=== PATIENT | female | born 1995 | race Caucasian/White ===

== ENCOUNTER 2024-10-21 02:21 | Inpatient (IN) ==
--- NOTE | 2024-10-21 02:35 | Emergency Department Note ---
Impression & Plan Sepsis, Pyelonephritis ED Provider Note CHIEF COMPLAINT: Vomiting, fever HISTORY OF PRESENTING ILLNESS: The patient is a 29-year-old female who arrives to the emergency department for evaluation of urinary symptoms x 1 week. She reports today she began having vomiting, fevers, intermittent back pain, and hematuria. She reports she took Tylenol prior to arrival at 8:00 tonight. She reports history of previous UTIs, however has not had one in a few years. REVIEW OF SYSTEMS: See HPI for pertinent positives and pertinent negatives. ALLERGIES: See below MEDICATIONS: See below PAST MEDICAL HISTORY: See above PHYSICAL EXAM: VITALS: Vitals are noted on the nurse's note and reviewed by myself. Vital signs stable. GENERAL: 29-year-old female, in no acute distress, nondiaphoretic, well- developed well-nourished. SKIN: The skin was without rashes, erythema, edema, or bruising. HEAD: Normocephalic atraumatic. HEART: Tachycardia with regular rhythm without murmurs gallops or rubs. LUNGS: Clear to auscultation bilaterally without wheezes, rales or rhonchi. No retractions or accessory muscle use. ABDOMEN: Positive bowel sounds x 4. Soft, TTP suprapubic, bilateral CVA TTP. NEURO: Patient was alert and oriented to person place and time. No focal neurological deficits. DIFFERENTIAL DIAGNOSIS: Appendicitis, ovarian cyst, ovarian torsion, ectopic , TOA, PID, infections, diverticulitis, UTI, obstruction, mesenteric ischemia, aortic pathology, inflammatory bowel disease, renal colic, PUD, pancreatitis, biliary pathology, hernia, volvulus, constipation, as well as other pathologies. ED COURSE AND MEDICAL DECISION MAKING: HISTORY FROM INDEPENDENT HISTORIAN: at bedside a secondary historian. MEDICATIONS GIVEN: 2 L NSS bolus, 1 g IV acetaminophen, 2 g IV Rocephin, 15 mg IV Toradol, 4 mg IV Zofran MONITOR: Continuous equipment monitor phototypesetting: Order was placed for continuous equipment monitor phototypesetting. Patient was placed on the equipment monitor phototypesetting and continuous pulse ox. Patient was noted to be in normal sinus rhythm at an initial rate of 139 bpm per my interpretation. INTERPRETATION OF LABS: I interpreted the labs with full lab results as below in the lab section of this note. Pertinent lab results discussed in the MDM section below. INTERPRETATION OF IMAGING: Imaging studies were interpreted by myself and read by radiology as per the imaging section of this note. CHRONIC MEDICAL/SOCIAL CONDITIONS AFFECTING CARE: Previous IV drug abuse MDM SUMMARY: The patient is a pleasant, 29-year-old female who arrives to the emergency department for evaluation of the above-stated complaint. Sepsis orders were obtained due to tachycardia, and fever with urine as likely source of infection. Lab work shows leukocytosis 12.2, sodium 133, potassium 3.4, procalcitonin 2.4. Urinalysis 2+ leukocyte esterase, 2+ bacteria, greater than 50 WBCs. Fluid resuscitation was provided with 2 L of normal saline, the patient was provided IV Tylenol for fever, 2 g of IV Rocephin for broad-spectrum coverage, IV Toradol for pain, and IV Zofran for nausea. CT imaging of the abdomen and pelvis with IV contrast was obtained which shows perinephric fat stranding, with likely left-sided pyelonephritis. [facility]. Booker, agreed to accept the patient under his care. Please refer to his documentation for further patient workup and treatment. DIAGNOSIS: Pyelonephritis, sepsis The chart was completed utilizing [email or web address][employer] Speech voice recognition software. Grammatical errors, random word insertions, pronoun errors, and incomplete sentences are an occasional consequence of this system due to software limitations, ambient noise, and hardware issues. Any formal questions or concerns about the content, text, or information contained within the body of this dictation should be directly addressed to the provider for clarification. Past Med/Surg History Problem List (Updated 10/23/24 @ 20:33 by OUSMANE Funes) Pyelonephritis (Acute) Sepsis (Acute) Acne (Chronic 08/21/12) Social History Smoking Status: Current every day smoker Tobacco Type: E-cigarettes / Vaping Hx Alcohol Use: No Hx Substance Use: No Preferred Language: Yi Communication Ability: Effective Laboratory Director Required: No Beliefs That Will Affect Care: None Current Living Situation: Alone Feels Safe at Home: Yes Safety Concerns: Feels Safe At This Time Allergies Allergies Allergy/AdvReac Type Severity Reaction Status Date / Time No Known Allergies Allergy Verified 10/21/24 02:38 Home Meds Home Medications Medication Instructions Recorded Confirmed bupropion HCl 150 mg 24 hr tablet, 150 mg PO QAM 12/14/23 10/21/24 extended release amitriptyline 25 mg tablet 25 mg PO HS 10/21/24 10/21/24 methadone 10 mg/5 mL oral solution 91 mg PO DAILY 10/21/24 10/21/24 multivitamin 1 tab PO DAILY 10/21/24 10/21/24 Previous Rx's Medication Instructions Recorded amoxicillin 500 mg-potassium 1 tab PO BID 7 days #14 tabs 10/22/24 clavulanate 125 mg tablet (Augmentin) meloxicam 7.5 mg tablet 7.5 mg PO DAILY PRN headache #14 10/22/24 tabs ondansetron 4 mg disintegrating 4 mg PO DAILY PRN nausea and 10/22/24 tablet vomiting #14 tabs Results & Data (ED) Vital Signs Vital Signs - 24 hr 10/21/24 02:26 10/21/24 03:06 10/21/24 03:12 Temperature 37.7 C H Temperature Source Temporal Artery Scan Pulse Rate 139 H 130 H 122 H Pulse Rate from SpO2 Sensor Respiratory Rate 20 19 26 H Respiratory Effort / Characteristics Non-Labored Respiratory Depth Normal Blood Pressure 120/71 Blood Pressure Mean 87 Pulse Oximetry 98 Oxygen Delivery Method Room Air Sepsis Recent Fever Within 48 Hours Yes Sepsis New/Unexplained Change in Mental Status No Sepsis Action Taken by Nursing No Action Required 10/21/24 03:30 10/21/24 03:30 10/21/24 03:37 Temperature Temperature Source Pulse Rate 112 H Pulse Rate from SpO2 Sensor 114 H Respiratory Rate Respiratory Effort / Characteristics Respiratory Depth Blood Pressure Blood Pressure Mean Pulse Oximetry 92 92 Oxygen Delivery Method Room Air Room Air Sepsis Recent Fever Within 48 Hours Sepsis New/Unexplained Change in Mental Status Sepsis Action Taken by Halfway Medications Current Medication List: was personally reviewed by me Laboratory Data Attestation: I reviewed the patient's lab results. 10/22/24 06:28 10/22/24 06:28 Lab Results 10/21/24 10/21/24 Range/Units 03:13 03:15 WBC 12.20 H (4.8-10.8) K/ul RBC 4.55 (4.20-5.40) M/uL Hgb 12.4 (12.0-16.0) g/dl Hct 36.9 L (37.0-47.0) % MCV 81.1 (80.0-100.0) fL MCH 27.3 (25.0-34.0) pg MCHC 33.6 (32.0-36.0) g/dL RDW Std Deviation 37.2 (36.4-46.3) fL RDW Coeff of Alannah 12.7 (11.5-14.5) % Plt Count 195 (130-400) K/uL MPV 10.1 (9.4-12.4) fL Immature Gran % (Auto) 0.3 % Neut % (Auto) 92.2 % Lymph % (Auto) 4.1 % [place] % (Auto) 3.0 % Eos % (Auto) 0.1 % Baso % (Auto) 0.3 % Neut # (Auto) 11.25 H (1.40-6.50) K/uL Lymph # (Auto) 0.50 L (1.20-3.40) K/uL [place] # (Auto) 0.36 (0.11-0.59) K/uL Eos # (Auto) 0.01 (0.00-0.50) K/uL Baso # (Auto) 0.04 (0.00-0.20) K/uL Immature Gran # (Auto) 0.04 (0.01-0.20) K/uL Polychromasia 1+ Sodium 133 L (136-145) mmol/L Potassium 3.4 L (3.5-5.1) mmol/L Chloride 102 (98-107) mmol/L Carbon Dioxide 26 (21-32) mmol/L Anion Gap 5 (3-11) BUN 21 (6-23) mg/dl Creatinine 0.99 (0.6-1.2) mg/dl Est Cr Clr Drug Dosing 83.3 ml/min eGFR 78.18 BUN/Creatinine Ratio 21.2 H (10-20) Glucose 114 H (70-99(Fasting)) mg/dl Estimat Average Glucose 117 mg/dl Hemoglobin A1c 5.7 H (4.5-5.6) % Lactate 0.8 (0.4-2.0) mmol/L Calcium 9.2 (8.6-10.3) mg/dl Magnesium 1.5 L (1.7-2.4) mg/dl Total Bilirubin 0.6 (0.2-1.0) mg/dl AST 21 (13-39) U/L ALT 20 (7-52) U/L Alkaline Phosphatase 65 (34-104) U/L Total Protein 7.3 (6.0-8.3) gm/dl Albumin 4.3 (3.4-5.0) gm/dl Globulin 3.0 (2.5-4.0) gm/dl Albumin/Globulin Ratio 1.4 (0.9-2) Lipase 12 (11-82) U/L Procalcitonin 2.40 H (0-0.5) ng/ml Urine Color Yellow Urine Appearance Clear (Clear) Urine pH 7.5 (4.5-7.5) Ur Specific [place] 1.013 (1.000-1.030) Urine Protein Trace H (Negative) Urine Glucose (UA) Negative (Negative) Urine Ketones 1+ H (Negative) Urine Blood Negative (Negative) Urine Nitrite Negative (Negative) Urine Bilirubin Negative (Negative) Urine Urobilinogen Negative (Negative) Ur Leukocyte Esterase 2+ H (Negative) Urine WBC (Auto) >50 H (0-5) /hpf Urine RBC (Auto) 0-2 (0-2) /hpf U Hyaline Cast (Auto) 0-2 (0-2) /lpf U Epithel Cells (Auto) 0-2 (0-2) /hpf Urine Bacteria (Auto) 2+ H (None Seen) Urine Test Negative (Negative) Administered Medications Discontinued Medications Acetaminophen (Acetaminophen 500 Mg Tab) 500 mg PO Q6H PRN PRN Reason: fever/pain Stop: 11/20/24 05:42 Last Admin: 10/21/24 15:16 Dose: 500 mg Documented By: [facility] Acetaminophen (Acetaminophen 500 Mg Tab) 1,000 mg PO Q8H PRN PRN Reason: fever/pain Stop: 11/20/24 05:42 Last Admin: 10/22/24 03:20 Dose: 1,000 mg Documented By: YAZMIN Amitriptyline HCl (Amitriptyline Hcl 25 Mg Tab) 25 mg PO HS CARLITO Stop: 11/20/24 20:59 Last Admin: 10/21/24 20:18 Dose: 25 mg Documented By: ADRIANNE Bupropion HCl (Bupropion Xl 150 Mg Tabcr) 150 mg PO QAM CARLITO Stop: 11/20/24 08:59 Last Admin: 10/22/24 08:43 Dose: 150 mg Documented By: Admin: 10/21/24 09:12 Dose: 150 mg Documented By: DUSTIN Sodium Chloride (Nss) 1,000 mls @ 999 mls/hr IV .Q1H1M ONE Stop: 10/21/24 03:33 Last Infusion: 10/21/24 04:41 Dose: Infused Documented By: Admin: 10/21/24 03:13 Dose: 999 mls/hr Documented By: LIN Acetaminophen (Ofirmev) 1,000 mg in 100 mls @ 400 mls/hr IV NOW STA Stop: 10/21/24 02:47 Last Infusion: 10/21/24 04:23 Dose: Infused Documented By: Admin: 10/21/24 03:15 Dose: 400 mls/hr Documented By: LIN Ceftriaxone Sodium (Rocephin) 2,000 mg in 50 mls @ 100 mls/hr IV NOW STA Stop: 10/21/24 03:36 Last Infusion: 10/21/24 04:23 Dose: Infused Documented By: Admin: 10/21/24 03:33 Dose: 100 mls/hr Documented By: LIN Potassium Chloride/Sodium Chloride (Normal Saline W/20 Meq Kcl) 20 meq in 1,000 mls @ 100 mls/hr IV .Q10H ONE Stop: 10/21/24 15:41 Last Infusion: 10/21/24 16:23 Dose: Infused Documented By: [facility] [place]: 10/21/24 06:19 Dose: 100 mls/hr Documented By: LIN Cefepime HCl (Maxipime 2000mg) 2,000 mg in 20 mls @ 5 mls/min IV Q8H [facility]; Protocol Stop: 10/31/24 13:59 Last Admin: 10/22/24 05:43 Dose: 5 mls/min Documented By: Admin: 10/21/24 22:02 Dose: 5 mls/min Documented By: Admin: 10/21/24 14:16 Dose: 5 mls/min Documented By: Cefepime HCl (Maxipime 2000mg) 2,000 mg in 20 mls @ 5 mls/min IV ONE STA; Protocol Stop: 10/21/24 06:04 Last Admin: 10/21/24 06:15 Dose: 5 mls/min Documented By: LIN Magnesium Sulfate/Dextrose (Magnesium Sulfate / D5w) 1 gm in 100 mls @ 50 mls/hr IV Q2H CARLITO Stop: 10/21/24 12:29 Last Infusion: 10/21/24 12:56 Dose: Infused Documented By: Admin: 10/21/24 10:18 Dose: 50 mls/hr Documented By: Infusion: 10/21/24 10:18 Dose: Infused Documented By: Admin: 10/21/24 08:27 Dose: 50 mls/hr Documented By: DUSTIN Lactated Ringer's (Lr) 1,000 mls @ 125 mls/hr IV .Q8H CARLITO Stop: 10/22/24 06:00 Last Infusion: 10/22/24 08:43 Dose: Infused Documented By: Admin: 10/22/24 00:48 Dose: 125 mls/hr Documented By: Infusion: 10/22/24 00:44 Dose: Infused Documented By: Admin: 10/21/24 16:44 Dose: 125 mls/hr Documented By: LEVON Ioversol (Optiray 320 100ml) 100 ml IV ONCE ONE Stop: 10/21/24 04:10 Last Admin: 10/21/24 04:09 Dose: 93 ml Documented By: KAMERON Ketorolac Tromethamine (Ketorolac Tromethamine 15 Mg/Ml Vial) 15 mg IV NOW ONE Stop: 10/21/24 03:13 Last Admin: 10/21/24 03:33 Dose: 15 mg Documented By: LIN Ketorolac Tromethamine (Ketorolac Tromethamine 15 Mg/Ml Vial) 15 mg IV Q6H PRN PRN Reason: Pain Stop: 10/26/24 05:42 Last Admin: 10/21/24 16:38 Dose: 15 mg Documented By: LEVON Ketorolac Tromethamine (Ketorolac Tromethamine 15 Mg/Ml Vial) 15 mg IV Q8 CARLITO Stop: 10/26/24 21:59 Last Admin: 10/22/24 05:43 Dose: 15 mg Documented By: Admin: 10/21/24 22:01 Dose: 15 mg Documented By: ADRIANNE Methadone HCl (Methadone Oral Soln 2 Mg/Ml) 91 mg PO Q24H CARLITO Stop: 11/05/24 05:59 Last Admin: 10/22/24 05:43 Dose: 91 mg Documented By: ADRIANNE Methadone HCl (Methadone Oral Soln 2 Mg/Ml) 91 mg PO ONE ONE Stop: 10/21/24 09:01 Last Admin: 10/21/24 09:12 Dose: 91 mg Documented By: DUSTIN Multivitamins (Multivitamin Tab) 1 tab PO DAILY CARLITO Stop: 11/21/24 08:59 Last Admin: 10/22/24 08:43 Dose: 1 tab Documented By: SUMI Non-Formulary Medication (Patient's Own Controlled Med 1) 1 each PO Q24H CARLITO Stop: 11/05/24 05:59 Last Admin: 10/22/24 06:37 Dose: Not Given Documented By: ADRIANNE Ondansetron HCl (Ondansetron Inj 2 Mg/Ml 2 Ml Vial) 4 mg IV NOW STA Stop: 10/21/24 02:34 Last Admin: 10/21/24 03:13 Dose: 4 mg Documented By: LIN Potassium Chloride (Potassium Chloride Pwd 20 Meq Pack) 40 meq PO NOW STA Stop: 10/21/24 05:41 Last Admin: 10/21/24 06:14 Dose: 40 meq Documented By: LIN Imaging Data Attestation: I personally reviewed and interpreted this imaging study as follows: Discharge Plan Visit Data Chief Complaint: Vomiting Stated Complaint: VOMITING, FEVER, HEADACHE, BLOATED ED Provider: Kayla Renteria ED Midlevel Provider: Romy Gray Discharge Problem: Sepsis, Pyelonephritis Patient Disposition: Admitted As Inpatient Condition: Good Discharge Instructions Interventions: ED Discharge Assessment Last Done: 10/21/24 09:55
[2024-10-21] MEDS: ONDANSETRON INJ 2 MG/ML 2 ML VIAL IV STA (03:13)
[2024-10-21] MEDS: SODIUM CHLORIDE 0.9% 1,000 ML IV ONE (03:13)
[2024-10-21] MEDS: ACETAMINOPHEN 1,000 MG/100 ML VIAL IV STA (03:15)
[2024-10-21 03:30] LABS: Hematocrit (blood only) 36.9 % (37.0-47.0); Hemoglobin 12.4 g/dl (12.0-16.0); Mean Corpuscular Hemoglobin 27.3 pg (25.0-34.0); Mean Corpuscular Hgb Conc 33.6 g/dL (32.0-36.0); Mean Corpuscular Volume 81.1 fL (80.0-100.0); Mean Platelet Volume 10.1 fL (9.4-12.4); Platelet Count 195 K/uL (130-400); RDW Coefficient of Variation 12.7 % (11.5-14.5); RDW Standard Deviation 37.2 fL (36.4-46.3); Red Blood Count 4.55 M/uL (4.20-5.40)
[2024-10-21] MEDS: cefTRIAXone SODIUM 2,000 MG/50 ML BAG IV STA (03:33)
[2024-10-21] MEDS: KETOROLAC TROMETHAMINE 15 MG/ML VIAL IV ONE (03:33)
[2024-10-21 03:43] LABS: Appearance Urine Clear (Clear); Bacteria Urine Automated 2+ (None Seen); Bilirubin Urine Negative (Negative); Blood Urine Negative (Negative); Cast Urine Automated 0-2 /lpf (0-2); Color Urine Yellow; Epithelial Cell Urine Auto 0-2 /hpf (0-2); Glucose Urine UA Negative (Negative); Ketones Urine 1+ (Negative); Leukocyte Esterase Urine 2+ (Negative); Nitrite Urine Negative (Negative); Protein Urine Trace (Negative); RBC Urine Automated 0-2 /hpf (0-2); Specific Gravity Urine 1.013 (1.000-1.030); Urobilinogen Urine Negative (Negative); WBC Urine Automated >50 /hpf (0-5); pH Urine 7.5 (4.5-7.5)
[2024-10-21 03:47] LABS: Albumin Globulin Ratio 1.4 (0.9-2); Albumin Level 4.3 gm/dl (3.4-5.0); BUN Creatinine Ratio 21.2 (10-20); Bilirubin,Total 0.6 mg/dl (0.2-1.0); Calcium 9.2 mg/dl (8.6-10.3); Creatinine Clr Calc Pharmacy 83.3 ml/min; Potassium 3.4 mmol/L (3.5-5.1); Total Protein 7.3 gm/dl (6.0-8.3)
[2024-10-21 03:48] LABS: Basophils # (auto) 0.04 K/uL (0.00-0.20); Basophils % (auto) 0.3 %; Eosinophils # (auto) 0.01 K/uL (0.00-0.50); Eosinophils % (auto) 0.1 %; Immature Granulocytes # (auto) 0.04 K/uL (0.01-0.20); Immature Granulocytes % (auto) 0.3 %; Lymphocytes % (auto) 4.1 %; Monocytes # (auto) 0.36 K/uL (0.11-0.59); Neutrophils # (auto) 11.25 K/uL (1.40-6.50); Neutrophils % (auto) 92.2 %; Polychromasia 1+
[2024-10-21] MEDS: OPTIRAY 320 100ml IV ONE (04:09)
--- NOTE | 2024-10-21 05:18 | CT Scan Report ---
EXAM: CT abd pelvis IV con only CLINICAL HISTORY: abd pain TECHNIQUE: Contiguous axial images were obtained from the level of the diaphragm to the pubic symphysis with intravenous contrast. Coronal and sagittal reconstructions were likewise performed and indicated to increase the sensitivity for detecting clinically relevant pathology. If IV contrast material had not been administered, the likelihood of detecting abnormalities relevant to the patient's condition would have been substantially decreased. CT scan was performed according to ALARA (as low as reasonable achievable). COMPARISON: None FINDINGS: The visualized lung bases are clear. The liver is enlarged in size and reduced attenuation. No focal liver lesions are seen. There is no intra or extrahepatic biliary ductal dilatation. Hepatic vasculature is patent. The gallbladder is present. Mild splenomegaly and shows multiple tiny calcific granuloma. The , pancreas, and adrenal glands are unremarkable. The kidneys are normal in size. Peripheral hypodense areas seen in left renal cortex. Mild left sided perinephric fat stranding present. There is no hydronephrosis No renal calculi or renal masses are identified. The ureters are normal in caliber and no ureteral calculi are seen. The bladder is normal in contour. Pelvic viscera are unremarkable. No focal or diffuse bowel wall thickening or evidence of bowel obstruction is identified. The appendix is visualized in the right lower quadrant and appears within normal limits. Abdominal and pelvic vasculature is patent. No adenopathy or fluid collections are seen. No aggressive appearing osseous lesions are identified. IMPRESSION: 1. Hepatomegaly with hepatic steatosis. 2. Splenomegaly with multiple tiny splenic granuloma. 3. Peripheral hypodense areas seen in left renal cortex. Mild left sided perinephric fat stranding present. Possibility of left sided pyelonephritis or perfusion defects. Advised clinical correlation. 4. No other acute intra-abdominal abnormality seen. Electronically signed by Angus Curtis 10-21-2024 05:17 AM
[2024-10-21] MEDS ORDERED: PROMETHAZINE 12.5 MG/50.5 ML BAG IV PRN (05:43)
--- NOTE | 2024-10-21 06:08 | History & Physical Report ---
Date of Service October 21, 2024 Assessment & Plan (1) Sepsis: Plan: Sepsis Secondary to complicated UTI/pyelonephritis Signs of chronic liver disease on imaging, history HCV status post Rx mood disorder, stable chronic pain on methadone migraine on amitriptyline past history of substance abuse Hypokalemia secondary to emesis Hyperglycemia rule out DM ongoing vape use Admit to med/tele CS, Cefepime Outpatient GI consult for chronic liver disease workup Replace electrolytes Check hemoglobin A1c DVT prophylaxis. SCDs Re: Hematuria Full code Text document was generated using [employer] voice recognition software. It may contain grammatical or spelling errors. Kindly contact undersigned for clarification of any documentation item in question. History of Present Illness Chief Complaint: UTI Primary Care Provider: OUSMANE Israel History obtained from patient and records. Medical history significant for HCV status post Rx, mood disorder, chronic pain on methadone, migraine, past history of substance abuse, ongoing vape use. Last confinement 2012 for ileus. 1 week history of urinary frequency with hematuria symptoms. Achy low back and lower abdominal pain followed by nausea emesis. Fever chills, mild headache symptoms different from usual migraine attack. Patient consulted ER for worsening symptoms. IV ceftriaxone administered at the ER. 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 Allergies Allergy/AdvReac Type Severity Reaction Status Date / Time No Known Allergies Allergy Verified 10/21/24 02:38 Home Medications Medication Instructions Recorded Confirmed Type bupropion HCl 150 mg 24 hr tablet, 150 mg PO QAM 12/14/23 10/21/24 History extended release amitriptyline 25 mg tablet 25 mg PO HS 10/21/24 10/21/24 History methadone 10 mg/5 mL oral solution 91 mg PO DAILY 10/21/24 10/21/24 History multivitamin 1 tab PO DAILY 10/21/24 10/21/24 History Past Med/Surg History Problem List (Updated 10/21/24 @ 07:14 by Juan Booker MD) Sepsis Acne (Chronic 08/21/12) Social History Smoking Status: Never smoker Preferred Language: Mongolian Feels Safe at Home: Yes Review of Systems Review of Systems: As per HPI, all other systems reviewed and negative Physical Exam Physical Exam: GENERAL: Slightly uncomfortable, pleasant, obese, no respiratory distress SKIN: Normal color, warm HEENT: [place] palpebral conjunctivae, no ptosis, dry buccal mucosa NECK : Supple, no tenderness CHEST : CTA, no tenderness HEART : RRR, no obvious murmurs ABDOMEN: Some distention, minimal hypogastric tenderness EXTREMITIES : Minimal LE swelling, without LE tenderness, bilateral hand erythema (chronic as per patient), palpable pulses, no other conspicuous deformities noted NEUROLOGIC : Coherent, no facial asymmetry, no other gross focality Results & Data Results & Data Vital Signs (Past 12 Hours) Vital Signs Temp Pulse Resp BP Pulse Ox O2 Del Method 10/21/24 05:15 90 20 94 10/21/24 05:00 93 H 18 96/60 L 94 10/21/24 04:45 37.2 C 10/21/24 04:21 103 H 21 93 10/21/24 04:20 107/67 10/21/24 04:03 103 H 19 95 10/21/24 03:37 112 H 10/21/24 03:30 92 Room Air 10/21/24 03:30 92 Room Air 10/21/24 03:12 122 H 26 H 10/21/24 03:06 130 H 19 10/21/24 02:26 37.7 C H 139 H 20 120/71 98 Room Air Laboratory Results Laboratory Results WBC 12.20 K/ul (4.8-10.8) H 10/21/24 03:15 RBC 4.55 M/uL (4.20-5.40) 10/21/24 03:15 Hgb 12.4 g/dl (12.0-16.0) 10/21/24 03:15 Hct 36.9 % (37.0-47.0) L 10/21/24 03:15 MCV 81.1 fL (80.0-100.0) 10/21/24 03:15 MCH 27.3 pg (25.0-34.0) 10/21/24 03:15 MCHC 33.6 g/dL (32.0-36.0) 10/21/24 03:15 RDW Std Deviation 37.2 fL (36.4-46.3) 10/21/24 03:15 RDW Coeff of Alannah 12.7 % (11.5-14.5) 10/21/24 03:15 Plt Count 195 K/uL (130-400) 10/21/24 03:15 MPV 10.1 fL (9.4-12.4) 10/21/24 03:15 Immature Gran % (Auto) 0.3 % 10/21/24 03:15 Neut % (Auto) 92.2 % 10/21/24 03:15 Lymph % (Auto) 4.1 % 10/21/24 03:15 [place] % (Auto) 3.0 % 10/21/24 03:15 Eos % (Auto) 0.1 % 10/21/24 03:15 Baso % (Auto) 0.3 % 10/21/24 03:15 Neut # (Auto) 11.25 K/uL (1.40-6.50) H 10/21/24 03:15 Lymph # (Auto) 0.50 K/uL (1.20-3.40) L 10/21/24 03:15 [place] # (Auto) 0.36 K/uL (0.11-0.59) 10/21/24 03:15 Eos # (Auto) 0.01 K/uL (0.00-0.50) 10/21/24 03:15 Baso # (Auto) 0.04 K/uL (0.00-0.20) 10/21/24 03:15 Immature Gran # (Auto) 0.04 K/uL (0.01-0.20) 10/21/24 03:15 Polychromasia 1+ 10/21/24 03:15 Sodium 133 mmol/L (136-145) L 10/21/24 03:15 Potassium 3.4 mmol/L (3.5-5.1) L 10/21/24 03:15 Chloride 102 mmol/L (98-107) 10/21/24 03:15 Carbon Dioxide 26 mmol/L (21-32) 10/21/24 03:15 Anion Gap 5 (3-11) 10/21/24 03:15 BUN 21 mg/dl (6-23) 10/21/24 03:15 Creatinine 0.99 mg/dl (0.6-1.2) 10/21/24 03:15 Est Cr Clr Drug Dosing 83.3 ml/min 10/21/24 03:15 eGFR 78.18 10/21/24 03:15 BUN/Creatinine Ratio 21.2 (10-20) H 10/21/24 03:15 Glucose 114 mg/dl (70-99(Fasting)) H 10/21/24 03:15 Lactate 0.8 mmol/L (0.4-2.0) 10/21/24 03:15 Calcium 9.2 mg/dl (8.6-10.3) 10/21/24 03:15 Total Bilirubin 0.6 mg/dl (0.2-1.0) 10/21/24 03:15 AST 21 U/L (13-39) 10/21/24 03:15 ALT 20 U/L (7-52) 10/21/24 03:15 Alkaline Phosphatase 65 U/L (34-104) 10/21/24 03:15 Total Protein 7.3 gm/dl (6.0-8.3) 10/21/24 03:15 Albumin 4.3 gm/dl (3.4-5.0) 10/21/24 03:15 Globulin 3.0 gm/dl (2.5-4.0) 10/21/24 03:15 Albumin/Globulin Ratio 1.4 (0.9-2) 10/21/24 03:15 Lipase 12 U/L (11-82) 10/21/24 03:15 Procalcitonin 2.40 ng/ml (0-0.5) H 10/21/24 03:15 Urine Color Yellow 10/21/24 03:13 Urine Appearance Clear (Clear) 10/21/24 03:13 Urine pH 7.5 (4.5-7.5) 10/21/24 03:13 Ur Specific [place] 1.013 (1.000-1.030) 10/21/24 03:13 Urine Protein Trace (Negative) H 10/21/24 03:13 Urine Glucose (UA) Negative (Negative) 10/21/24 03:13 Urine Ketones 1+ (Negative) H 10/21/24 03:13 Urine Blood Negative (Negative) 10/21/24 03:13 Urine Nitrite Negative (Negative) 10/21/24 03:13 Urine Bilirubin Negative (Negative) 10/21/24 03:13 Urine Urobilinogen Negative (Negative) 10/21/24 03:13 Ur Leukocyte Esterase 2+ (Negative) H 10/21/24 03:13 Urine WBC (Auto) >50 /hpf (0-5) H 10/21/24 03:13 Urine RBC (Auto) 0-2 /hpf (0-2) 10/21/24 03:13 U Hyaline Cast (Auto) 0-2 /lpf (0-2) 10/21/24 03:13 U Epithel Cells (Auto) 0-2 /hpf (0-2) 10/21/24 03:13 Urine Bacteria (Auto) 2+ (None Seen) H 10/21/24 03:13 Impressions Abdomen/Pelvis CT 10/21/24 02:33 EXAM: CT abd pelvis IV con only CLINICAL HISTORY: abd pain TECHNIQUE: Contiguous axial images were obtained from the level of the diaphragm to the pubic symphysis with intravenous contrast. Coronal and sagittal reconstructions were likewise performed and indicated to increase the sensitivity for detecting clinically relevant pathology. If IV contrast material had not been administered, the likelihood of detecting abnormalities relevant to the patient's condition would have been substantially decreased. CT scan was performed according to ALARA (as low as reasonable achievable). COMPARISON: None FINDINGS: The visualized lung bases are clear. The liver is enlarged in size and reduced attenuation. No focal liver lesions are seen. There is no intra or extrahepatic biliary ductal dilatation. Hepatic vasculature is patent. The gallbladder is present. Mild splenomegaly and shows multiple tiny calcific granuloma. The , pancreas, and adrenal glands are unremarkable. The kidneys are normal in size. Peripheral hypodense areas seen in left renal cortex. Mild left sided perinephric fat stranding present. There is no hydronephrosis No renal calculi or renal masses are identified. The ureters are normal in caliber and no ureteral calculi are seen. The bladder is normal in contour. Pelvic viscera are unremarkable. No focal or diffuse bowel wall thickening or evidence of bowel obstruction is identified. The appendix is visualized in the right lower quadrant and appears within normal limits. Abdominal and pelvic vasculature is patent. No adenopathy or fluid collections are seen. No aggressive appearing osseous lesions are identified. IMPRESSION: 1. Hepatomegaly with hepatic steatosis. 2. Splenomegaly with multiple tiny splenic granuloma. 3. Peripheral hypodense areas seen in left renal cortex. Mild left sided perinephric fat stranding present. Possibility of left sided pyelonephritis or perfusion defects. Advised clinical correlation. 4. No other acute intra-abdominal abnormality seen. Electronically signed by Angus Curtis 10-21-2024 05:17 AM
[2024-10-21] MEDS ORDERED: LORazepam 0.5 MG TAB PO PRN (06:09)
[2024-10-21 06:11] LABS: Magnesium 1.5 mg/dl (1.7-2.4)
[2024-10-21] MEDS: POTASSIUM CHLORIDE PWD 20 MEQ PACK PO STA (06:14)
[2024-10-21] MEDS: CEFEPIME 2000MG 2,000 MG/20 ML SYR IV STA (06:15)
[2024-10-21] MEDS: NSS + 20MEQ KCL 20 MEQ/1,000 ML BAG IV ONE (06:19)
[2024-10-21 07:32] LABS: Pregnancy Test, Urine Negative (Negative)
[2024-10-21 07:39] LABS: Estimated Average Glucose 117 mg/dl; Hemoglobin A1C 5.7 % (4.5-5.6)
[2024-10-21] MEDS: MAGNESIUM SULFATE / D5W 1 GM/100 ML BAG IV SCH (08:27)
[2024-10-21] MEDS: buPROPion XL 150 MG TABCR PO SCH (09:12)
[2024-10-21] MEDS: METHADONE ORAL SOLN 2 MG/ML PO ONE (09:12)
--- OUTSIDE RECORDS SUMMARY | 2024-10-21 11:00 | External Medical Summary | Summary of Care ---
Author Name Unknown Organization [facility] Address [address] [facility] [place] [id number] Phone [phone] Care Team Providers Care District Sales Coordinator Name Role Phone Unavailable Primary Care Provider Unavailabl e Reason for Visit * Reason Comments Outpatient Testing Encounter Details Date Type Department Care Team (Late st Contact Info) Description 10/20/2024 4:30 PM EDT Laboratory Laboratory, [facility] [address] [place] [address] [facility], Lab [address] [place] [address] Encounter for long-term (current) use of medications; Laboratory exam ordered as part of routine general medical examination Allergies No known active allergiesdocumented as of this encounter (statuses as of 10/21/2024) Medications Methadone HCl 10 MG/5ML Oral Solution Take 42 mL by mouth every morning. Active Multi For Her Oral Tablet Take 1 Tablet by mouth in the morning. Active Amitriptyline HCl 25 MG Oral Tablet (Elavil)Indicati ons:Migraine without aura and without status migrainosus, not intractable Take a half tablet by mouth at bedtime for 1-2 weeks, then increase to a full tablet by mouth at bedtime if tolerating. 30 Tablet 5 Active buPROPion HCl ER (XL) 150 MG Oral Tablet Extended Release 24 Hour (Wellbutrin XL) Take 1 Tablet by mouth in the morning. 30 Tablet 5 Active documented as of this encounter (statuses as of 10/21/2024) Active Problems Problem Noted Date Diagnosed Date SAB (spontaneous ) 12/17/2023 Overview (12/17/2023): Beta hcg 361 on 11/26/23 and 300 on 12/17/23. No heart tones visualized on ultrasound on 12/16/23. Urinary tract infection in m other during first trimester of 11/28/2023 Overview (11/28/2023): Treated 11/27. Will need GRETA in 4 weeks. History of hepatitis C 08/29/2023 Bilateral hand swelling 11/08/2021 Bilateral swelling of feet 11/08/2021 Chronic viral hepatitis 11/08/2021 Severe obesity with body mas s index (BMI) of 35.0 to 39.9 with serious comorbidity 01/27/2021 Overview (01/27/2021): Class 1 Assessment & Plan (06/22/2021 7:27 AM EST): Pt did not pass glucola screen; has not yet performed 3 hour OGTT. Recommendations: Discussed target weight gain in . Perform gestational diabetes mellitus 3 hour OGTT promptly. Tobacco use disorder documented as of this encounter (statuses as of 10/21/2024) Resolved Problems Problem Noted Date Diagnosed Date Resolved Date History of pre-eclampsia 11/08/202107/2023 Preeclampsia, severe, third trimester 06/29/2021 07/31/2021 Heroin use affecting pregnan cy in third trimester 06/29/2021 07/31/2021 Methamphetamine use disorder, severe 06/22/2021 07/31/2021 Assessment & Plan (06/22/2021 7:30 AM EST): Methadone maintenance treatm ent affecting 03/28/2021 07/31/2021 Assessment & Plan (06/23/2021 4:55 PM EST): CONSIDERATIONS: Methadone or buprenorphine maintenance therapy during helps prevent fluctuating maternal opioid levels and protects the fetus from recurrent episodes of opioid withdrawal, which may be lethal. Compared to continued illicit opioid use, maintenance therapy is associated with a decreased incidence of complications, such as delivery, growth restriction, and abstinence syndrome (ARABELLA). Methadone is not associated with defects. Maintenance dose is not related to the severity of ARABELLA. Maintenance therapy reduces the risk of opioid use, but does not prevent the use of other substances. Reviewed the importance of ensuring naloxone is at home or on person at all times; naloxone is available at all [place] pharmacies without a prescription. Methadone and buprenorphine are compatible with . RECOMMENDATIONS: Do not reduce or otherwise try to minimize the dose of maintenance therapy during . Medically supervised withdrawal is discouraged in . Professional counseling services are available for patients who wish to abstain from illicit opioids. Consider referral if patient desires. Hepatitis C infection 12/28/20202021 Overview (12/28/2020): Hep C viral load >1,000,000 at 12w. Attempting to make pt aware. Dysplasia of cervix, low grade ([place] 1) 12/27/2020 07/01/2021 Overview (01/31/2021): repeat pap 10/2021 Depression complicating , antepartum 12/22/19 21 07/31/2021 Overview (12/21/2020): Stopped Wellbutrin with [facility] but planning to restart given safety information on use with . Not currently in counsleing but aware of resources and likely will seek out. DFeclines referral to [facility] today. Denies SI or HI. Assessment & Plan (06/22/2021 7:27 AM EST): Reports that her mood symptoms have been stable. She denies SI/HI. Compliant with Wellbutrin 150 XL. Assessment & Plan (12/21/2020 2:59 PM EDT): DISCUSSION: 1. Discussed with patient that depression can and should be treated during when the benefits of treatment outweigh potential risks. Risks of leaving maternal depression untreated or inadequately treated are maternal suicide/homicide, an increased risk of depression/psychosis, relapse during and impaired maternal-child bonding. Risks of untreated mental illness pose additional risks in , such as miscarriage, low weight, and delivery. 2. Discussed that although there have been reports in the past regarding anti-depressant therapy and abnormalities or complications, research has not confirmed or supported this claim. Studies of first-trimester SSRI exposure do not demonstrate consistent data to support an increased risk for structural malformations, however, echocardiogram is indicated at this time for patients who were treated with paroxetine (Paxil) in the first trimester. 3. Anti-depressants have been associated with transient effects (withdrawal syndrome). RECOMMENDATIONS: 1. Women who are stable from a psychiatric standpoint may be able to stay on their medication after consultation between their mental health provider and their obstetric provider. However, for most women, accessible and acceptable mental health treatment may be very limited. 2. Women who would like to discontinue their medication may attempt medication tapering and discontinuation under the direction of their prescribing physician. 3. Women who have recurrent depression or who have depression despite medication may benefit from psychotherapy to replace or augment medication. 4. Women with severe depression should continue their medication. 5. Alternative treatments such as light therapy, acupuncture treatment and omega-3 fatty acids may be tried if the patient desires. Tobacco smoking affecting pr egnancy, antepartum 12/21/2020 07/31/2021 Assessment & Plan (06/23/2021 4:55 PM EST): Patient is currently taking up to 5 cigarettes daily. Recommendations: Abstain from all tobacco, vaping, and other nicotine products during and . Avoid all second hand smoke exposure during and after delivery. Quitting [place] is safe in . Consider Nicorette 2 mg lozenges or gum in lieu of cigarettes or vaping devices. Assessment & Plan (02/09/2021 3:03 PM EDT): She is smoking 1-2 cig/day, decreased from 5-10 cig/day prior to . Cessation encouraged. Assessment & Plan (12/21/2020 3:27 PM EDT): 1. Commended patient on having cut back cigarette smoking. Discouraged from using vaping as a cessation strategy . Discussed that tobacco use is associated with increased risks of spontaneous miscarriage, labor and delivery, premature rupture of membranes, growth restriction, stillbirth, SIDS postnatally, and placental abnormalities such as previa or abruption. 2. Smoking cessation aids such as the nicotine patch or Zyban are considered safer alternatives to tobacco use during . Encouraged patient to discuss with her primary provider for prescribing. 3. For patients who report smoking 1 pack per day of cigarettes or greater during , we recommend Maternal Medicine ultrasound for growth at 28-30 weeks. 4. Advised patient that the most successful method to quit smoking is if those around you do not smoke as well. Low grade squamous intraepit helial lesion (LGSIL) on cervical Pap smear 12/15/2020 07/31/2021 Overview (12/15/2020): LSIL +HPV on pap at [facility] 11/2020 Chronic viral hepatitis comp licating 12/02/2020 07/01/2021 Overview (12/21/2020): Hep C antibody positive, Hep C RNA ordered, but as of 12/15/2020 unable to reach pt to notify of result and need for additional lab draw 12/21/20 MFM consult and patient informed of results and importance of f/u testing, including CMP. Patient reports this finding was noted "years ago" with f/u suggesting past exposure and no active disease. Assessment & Plan (06/22/2021 7:26 AM EST): Most recent HCV quant level was 1,010,000on 12/22/20. Denies recent treatment for HCV. Recommendations The patient has the contact information for the gastroenterology clinic and will set up treatment. Hepatitis C infection is not a contraindication for . Abstain from alcohol and limit exposure to Tylenol to reduce the risk of further liver damage. Assessment & Plan (02/09/2021 3:04 PM EDT): She has an appointment with hepatology on 04/13/21. Assessment & Plan (12/21/2020 3:43 PM EDT): 1. Discussed that in general, does not appear to alter the course of hepatitis C viral infection. Additionally, hepatitis C infection does not increase the risk for obstetric complications or teratogenicity. Treatments for hepatitis C infection are contraindicated during . I stressed the importance of determining her viral load to assess current status of this exposure/infection. 2. There is a 4% to 7% risk of transmission of hepatitis C virus to the fetus in the [place]. The risk of transmission may be on the higher end of that spectrum with high maternal viral loads and on the lower end of that spectrum with low maternal viral counts. Counts below 100,000 IU/ml have a very low risk for vertical transmission. Discussed that there is no vaccine or immune globulin presently available to decrease the risk of transmission. 3. Performance of a section to prevent vertical transmission has not been shown to be effective. is not contraindicated for mothers with hepatitis C infection. 4. Counseled patient about safe sex practices to prevent transmission to sexual partners. 5. Recommend vaccines for hepatitis A & B, pneumococcal vaccine and flu vaccine if not already given. Patients should limit drugs such as Tylenol, and alcohol which can cause further liver damage in higher doses. 6. Recommend referral to GI specialist to discuss treatment options. 7. Reviewed that the NIH recommends that infants born to HCV-positive mothers should be tested for HCV RNA on two occasions between the ages of 2 and 6 months and/or have tests for anti-HCV after 15 months of age. Newborns who have acquired HCV are virtually always asymptomatic. They may clear the disease spontaneously on their own or progress to chronic infection. However, the progression is generally slow and mild and rarely presents significant liver disease before 20 years of age. 8. CMP ordered to ascertain liver function status as well. Drug use affecting 12/02/2020 07/31/2021 Overview (06/27/2021): PER MFM: Obtaining urine drug screen as well as a separate fentanyl screen at next visit or on admission to L&D, with positive result reflex to gas chromatography/mass spectroscopy (GCMS) for confirmation. MAT clinic referral placed. Pt has been noncompliant in returning calls and going to follow up apts. 11/29/20 Initial visit at [facility] in [place] and then no show for f/u 12/02/20 and not returning their calls. 12/21/20, [facility] consult- Patient reports using IV Heroin daily secondary to noncompliance with MAT f/u, and amphetamines off and on several times a week. She iindicates she does have Narcan in the event of overdose. Expresses issues with driving to [place] for MAT. [facility] friends have told her of closer providers in [place] "but there's probably a waiting list". Also she is considering Methadone as an option or De-tox but then expresses barrier of having to de-tox in order to use subutex. "I don't like that I have to get sick in order to get started." Has seen calls from [place] number but not returning as concerned it could be a creditor call. States she does have the MAT number to reach out to. [facility] she would be interested in establishing a [employer] account and I texted her those Instructions. +cocaine and fentanyl in UDS per methadone clinic 04/13 Assessment & Plan (06/23/2021 4:55 PM EST): Overview: Has taken cocaine, fentanyl, methamphetamines; currently taking methadone maintenance. Considerations: Recent urine toxicology screen not available. Recommendations: Abstain from all methamphetamine and cocaine products during and . Avoid second hand smoke exposure. Quitting [place] is safe in . Ensure a Narcan kit is in the home. Fentanyl is present in many methamphetamine and cocaine products and may lead to overdose if unexpectedly encountered. Ask other household members who take amphetamine or cocaine to abstain from use indefinitely. Always use a new intravenous needle every time you inject methamphetamine or cocaine. Always use a new insufflation instrument every time you snort methamphetamine or cocaine. Obtaining urine drug screen as well as a separate fentanyl screen at next visit or on admission to L&D, with positive result reflex to gas chromatography/mass spectroscopy (GCMS) for confirmation. Assessment & Plan (02/09/2021 3:03 PM EDT): She presents for a anatomy survey. This is complicated by a history of drug use, including heroin and methamphetamines. She states that she has initiated treatment at a methadone clinic in [place]. She is currently taking 50 mg daily and notes improvement, though she is still occasionally using heroin when she is symptomatic. She states they are awaiting a steady state before they increase her dose again. I encouraged her to continue close follow-up and treatment with this clinic. We reviewed the results of today's ultrasound. The estimated weight is appropriate for gestational age. The visualized anatomy is unremarkable in appearance. Some structures are suboptimally imaged secondary to position. The amniotic fluid amount appears normal. Ultrasound is not able to identify all anomalies, but it is reassuring that no anomalies were seen today. Assessment & Plan (12/21/2020 3:46 PM EDT): .DISCUSSION: 1. Discussed that the benefits of Suboxone/Subutex therapy include the prevention of erratic maternal opioid levels and protection of the fetus from repeated episodes of withdrawal. Additionally it can decrease the risk of infection from HIV, hepatitis, and other STD's. It also reduces the obstetrical and complications associated with heroin use such as withdrawal syndrome, pre-eclampsia, premature labor and delivery, intrauterine growth retardation, or , non-reassuring status, and placental abruption. 2. Reviewed that Suboxone/Subutex therapy can cause withdrawal syndrome with seizures and respiratory distress as well as GI dysfunction, although the risk of this complication is considered to be lower than that of either heroin or methadone use. 3. Suboxone/Subutex therapy has been used in [place] for more than ten years for maintenance during and extensive literature indicates that its use is safe and effective. It is not approved for use in in the [place] yet, but is being widely used. Reviewed with patient that Methadone is FDA approved for use in and is still the drug of choice for treatment/maintenance of the narcotic-dependent woman during . 4. Discussed that while Methadone is acceptable in for maintenance it does require daily visits, and has a less favorable track record regarding risk for SGA and pre-term delivery as compared to Subutex. 5. Discussed that MAT has been shown to be recommended over attempts to de-tox and go clean due to high risk for relapse and overdose. RECOMMENDATIONS: 1. When opioid maintenance programs are available to patients, medically supervised withdrawal should be discouraged during (ACOG Committee Opinion, reaffirmed 2014). 2. Recommend growth scans every 4 weeks to monitor for growth restriction. 3. Crystal was encouraged to reach out to the MAT folks in [place] in order to get back on track either there or through referral by them to closer option. She is aware that the ball is in her court. [employer] encouraged as perhaps a more comfortable communication approach for her. She is agreeable to this plan with support of FOFahad who was present for the visit today. High-risk 11/23/2020 07/31/19 22 Overview (05/05/2021): Problem Action Taken Date entered Entered by Date resolved Drug use, heroin Schedule for methadone clinic and Maternal Medicine 11/23/2020 Kayla Mccrary RN 11/23/2020 First provided pt w/nurse family partnership information 11/23/2020 Kayla Mccrary RN 11/23/2020 Nutrition Provided due date letter for pt to attend WIC 11/23/2020 Kayla Mccrary RN 11/23/2020 1st trimester education reviewed w/pt 11/23/2020 Kayla Mccrary RN 11/23/2020 Problem Action Taken Date entered Entered by Date resolved See nurses note for documentation See note 12/22/2020 Ruma Caballero RN 12/22/2020 Problem Action Taken Date entered Entered by Date resolved See nurses note for documentation 02/24/2021 Ruma Caballero RN 02/24/2021 Problem Action Taken Date entered Entered by Date resolved Current needs or questions Patient denies having any current needs or questions 05/05/2021 Kayla Mccrary RN 05/05/2021 Problem Action Taken Date entered Entered by Date resolved 3rd trimester education Reviewed w/pt 05/05/2021 Kayla Mccrary RN 05/05/2021 Readiness form completed 05/05/2021 Kayla Mccrary RN 05/05/2021 Urticaria 02/27/2006 07/26/2009 documented as of this encounter (statuses as of 10/21/2024) Immunizations Name Administration Dates Next Due Covid-19 Ad26, Single Dose (Nancy/J&J) 021 HPV Vaccine, 4-Valent 05/12/2010 Hepatitis A, Ped/Adol., 18 year and below, 2-Dos e 01/08/2007 Influenza Vaccine, Live, Int ranasal, Trivalent (Flumist) 08/03/2011 MMR - Measles/Mumps/Rubella Vaccine 01/08/2007 Meningococcal Conjugate Vaccine (Menactra/Menveo ) 03/03/2009 PPD 07/27/2019 Pneumococcal Conjugate Vaccine, 20-valent (Prevn ar20) 01/04/2022 Seasonal Influenza Vac., MDV, IM, 0.5 mL (Fluzon e) 05/12/2010,04/13/2009 Seasonal Influenza, PF, 6 M & above, IM , (FluLaval or Fluzone) 07/27/2019,09/24/2017 TDAP (age 10 and older)(Boostrix) 07/27/2019 TDAP, Age 7 and older, IM (Adacel) 03/03/2009 Varicella Vaccine (Chicken Pox) 03/03/2009 documented as of this encounter Social History Tobacco Use Types Packs/Day Years Used Date Smoking Tobacco: Former Cigarettes 0.3 15 0 12/05/2020 - 10/28/2006 Smokeless Tobacco: Never Alcohol Use Standard Drinks/Week Comments Not Currently 0 (1 standard drink = 0.6 oz pure alcohol) current heroin and amphetamine use PHQ-2 Answer Date Recorded PHQ-2 Score 12 07/27/2019 [place] Depression Scale Answer Date Recorded [place] Depression Scale Total 7 08/30/2021 The thought of harming myself has occurred to me . Never 08/30/2021 Comments No Sex and Gender Information Value Date Recorded Sex Assigned at Female 10/15/2023 7:18 AM EDT Legal Sex Female 7:20 AM EST Gender Identity Female 10/15/2023 7:18 AM EDT Sexual Orientation Bisexual 10/15/2023 7: 18 AM EDT Occupation Industry Job Start Date Job End Date unemployed Not on file Not on file Not on file documented as of this encounter Plan of Treatment Upcoming Encounters Date Type Department Care Team (Late st Contact Info) Description 01/06/2025 5:00 PM EDT Telemedicine Nutrition and Weight Management [address] [place] [id number] Bisi Chatman CRNP [phone] [place] [phone] Pending Results Name Type Priority Associated Diagnoses Date /Time BASIC METABOLIC PANEL Lab Routine Encounter for long-term (current) use of medications 10/20/2024 4:16 PM EDT LIPID PANEL WITH DIRECT LDL IF TG IS HIGH Lab Routine Laboratory exam ordered as part of routine general medical examination 10/20/2024 4:16 PM EDT Health Maintenance Due Date Last Done Comments HPV (Gardasil) Vaccine (2 - 3-dose series) 06/09/2010 05/12/2010 Lipid Panel 2013 Depression Monitoring 07/27/2020 07/27/2019 HPV/Co-Test 2023 COVID-19 Vaccine ( season) 2024 07/04/2021 Influenza Vaccine (FLU shot) (#1) 2024 07/27/2019, 09/24/2017, 08/03/2011, Additional history exists Cervical Cancer Screening 10/31/2024 Pap Smear 10/31/2024 10/31/2021, 10/28, 11/06/2017, Additional history exists DTap/Tdap Vaccines (8 - Td or Tdap) 07/27/2029 07/27/2019, 03/03/2009, 01/10/2004, Additional history exists Hepatitis B Vaccine Completed 1993, 1993, 1993, Additional history exists MENINGOCOCCAL (MENACTRA/MENVEO) Completed 03/03/2009 Pneumococcal Vaccine: Pediatrics (0 to 5 Years) and At-Risk Patients (6 to 18 Years and 19+ Years) Aged Out 01/04/2022 No longer eligib le based on patient's age to complete this topic Meningitis B Vaccine (Bexsero/Trumemba) Aged Out No longer eligible based on patient's age to complete this topic documented as of this encounter Medical Devices Not on filedocumented as of this encounter Visit Diagnoses Diagnosis Methadone maintenance treatment affecting in third trimester (HCC)- Primary Chronic viral hepatitis complicating (HCC) Other maternal viral disease complicating , childbirth, or the puerperium, unspecified as to episode of care Obesity in , antepartum Obesity complicating , childbirth, or the puerperium, antepartum condition or complication Depression complicating , antepartum Mental disorders of mother, antepartum Drug use affecting in third trimester Methamphetamine use disorder, severe (HCC) Tobacco smoking affecting , antepartum Supervision of high-risk , third trimester Encounter for long-term (current) use of medications Encounter for long-term (current) use of other medications Laboratory exam ordered as part of routine general medical examination Laboratory examination ordered as part of a routine general medical examination documented in this encounter Advance Directives * Full Code (Latest Code Status on File) Date Activated Date Inactivated Comments 06/29/2021 7:49 AM 07/05/2021 12:19 AM This order reflects the patients wishes and were consensually agreed upon.
--- OUTSIDE RECORDS SUMMARY | 2024-10-21 11:00 | External Medical Summary | Summary of Care ---
Author Name Unknown Organization [facility] Address [address] [facility] [place] [address] Phone [phone] Care Team Providers Care Physician Liaison Name Role Phone Unavailable Primary Care Provider Unavailabl e Encounter Details Date Type Department Care Team (Late st Contact Info) Description 10/19/2024 Orders Only PATIENT PORTAL DO NOT DELETE THIS DEPT USED BY [place] [id number] Allergies No known active allergiesdocumented as of this encounter (statuses as of 10/19/2024) Medications Methadone HCl 10 MG/5ML Oral Solution [...] at bedtime if tolerating. 30 Tablet 5 4 Active buPROPion HCl ER (XL) 150 MG Oral Tablet Extended Release 24 Hour (Wellbutrin XL) Take 1 Tablet by mouth in the morning. 30 Tablet 5 Active documented as of this encounter (statuses as of 10/19/2024) Active Problems Problem Noted Date Diagnosed Date SAB (spontaneous ) 12/17/2023 Overview (12/17/2023): Beta hcg 361 on 11/26/23 and 300 on 12/17/23. No heart tones visualized on ultrasound on 12/16/23. Urinary tract infection in m other during first trimester of 11/28/2023 Overview (11/28/2023): Treated 2. Will need GRETA in 4 weeks. History [...] as of this encounter (statuses as of 10/19/2024) Resolved Problems Problem Noted Date Diagnosed Date [...] all times; naloxone is available at all [place] pharmacies without a prescription. Methadone and buprenorphine [...] likely will seek out. DFeclines referral to [facility] today. Denies SI or HI. Assessment [...] exposure during and after delivery. Quitting [place] is safe in . Consider Nicorette 2 [...] follow up apts. 11/29/20 Initial visit at MAT in [place] and then no show for f/u 12/02/20 and not returning their calls. 12/21/20, MFM consult- Patient reports using IV Heroin daily secondary to noncompliance with MAT f/u, and amphetamines off and on several times a week. She iindicates she does have Narcan in the event of overdose. Expresses issues with driving to [place] for MAT. States friends have told her of closer providers in [place] "but there's probably a waiting list". Also she is considering Methadone as an option or De-tox but then expresses barrier of having to de-tox in order to use subutex. "I don't like that I have to get sick in order to get started." Has seen calls from [place] number but not returning as concerned it could be a creditor call. States she does have the MAT number to reach out to. States she would be interested in establishing a [employer] account and I texted her those Instructions. +cocaine and fentanyl in UDS per methadone clinic 04/13 Assessment & Plan (06/23/2021 4:55 PM EST): Overview: Has taken cocaine, fentanyl, methamphetamines; currently taking methadone maintenance. Considerations: Recent urine toxicology screen not available. Recommendations: Abstain from all methamphetamine and cocaine products during and . Avoid second hand smoke exposure. Quitting [place] is safe in . Ensure a Narcan [...] initiated treatment at a methadone clinic in [place]. She is currently taking 50 mg daily [...] reach out to the MAT folks in [place] in order to get back on track either there or through referral by them to closer option. She is aware that the ball is in her court. [facility] encouraged as perhaps a more comfortable communication approach for her. She is agreeable to this plan with support of FOB who was present for the visit today. [...] as of this encounter (statuses as of 10/19/2024) Immunizations Name Administration Dates Next Due Covid-19 [...] Answer Date Recorded PHQ-2 Score 12 07/27/2019 [place] Depression Scale Answer Date Recorded [place] Depression Scale Total 7 08/30/2021 The thought [...] [address] [place] [address] Bisi Chatman CRNP [address] [place] [address] Health Maintenance Due Date Last Done Comments [...] Not on filedocumented as of this encounter Advance Directives * Full Code (Latest Code Status on File) Date Activated Date Inactivated Comments 06/29/2021 7:49 AM 07/05/2021 12:19 AM This order reflects the patients wishes and were consensually agreed upon.
--- OUTSIDE RECORDS SUMMARY | 2024-10-21 11:01 | External Medical Summary | Summary of Care ---
Author Name Unknown Organization [facility] Address [address] [facility] [place] [address] Phone [phone] Care Team Providers Care Anatomy Teacher Name Role Phone Unavailable Primary Care Provider Unavailabl e Reason for Visit * Reason Onset Date Comments Medication Refill 10/14/2024 Encounter Details Date Type Department Care Team (Late st Contact Info) Description 10/14/2024 Refill Family Practice [facility] [address] [place] [address] Sandra Iyer CRNP [address] [place] [address] Encounter for long-term (current) use of medications*; Depression with anxiety; Laboratory exam ordered as part of routine general medical examination Allergies No known active allergiesdocumented as of this encounter (statuses as of 10/17/2024) Medications Methadone HCl 10 MG/5ML Oral Solution [...] by mouth in the morning. 30 Tablet Active buPROPion HCl ER (XL) 150 MG Oral Tablet Extended Release 24 Hour (Wellbutrin XL)Indications:D epression with anxiety Take 1 Tablet by mouth in the morning. 30 Tablet 5 02/28/2024 8:22 AM EDT 4 10/15/19 25 Discontinu ed(Refill) documented as of this encounter (statuses as of 10/17/2024) Active Problems Problem Noted Date Diagnosed Date SAB (spontaneous ) 12/17/2023 Overview (12/17/2023): Beta hcg 361 on 11/26/23 and 300 on 12/17/23. No heart tones visualized on ultrasound on 12/16/23. Urinary tract infection in m other during first trimester of 11/28/2023 Overview (11/28/2023): Treated 5/2. Will need GRETA in 4 weeks. History [...] as of this encounter (statuses as of 10/17/2024) Resolved Problems Problem Noted Date Diagnosed Date [...] all times; naloxone is available at all [place] pharmacies without a prescription. Methadone and buprenorphine [...] likely will seek out. DFeclines referral to [facility] today. Denies SI or HI. Assessment [...] exposure during and after delivery. Quitting Cold [place] is safe in . Consider Nicorette 2 [...] apts. 11/29/20 Initial visit at MAT in [place] and then no show for f/u 12/02/20 and not returning their calls. 12/21/20, MFM consult- Patient reports using IV Heroin daily secondary to noncompliance with MAT f/u, and amphetamines off and on several times a week. She iindicates she does have Narcan in the event of overdose. Expresses issues with driving to [place] for MAT. [facility] friends have told her of closer providers in [place] "but there's probably a waiting list". Also she is considering Methadone as an option or De-tox but then expresses barrier of having to de-tox in order to use subutex. "I don't like that I have to get sick in order to get started." Has seen calls from [place] number but not returning as concerned it could be a creditor call. States she does have the MAT number to reach out to. [facility] she would be interested in establishing a [employer] account and I texted her those Instructions. +cocaine and fentanyl in UDS per methadone clinic 04/13 Assessment & Plan (06/23/2021 4:55 PM EST): Overview: Has taken cocaine, fentanyl, methamphetamines; currently taking methadone maintenance. Considerations: Recent urine toxicology screen not available. Recommendations: Abstain from all methamphetamine and cocaine products during and . Avoid second hand smoke exposure. Quitting [place] is safe in . Ensure a Narcan [...] initiated treatment at a methadone clinic in [place]. She is currently taking 50 mg daily [...] reach out to the MAT folks in [place] in order to get back on track either there or through referral by them to closer option. She is aware that the ball is in her court. Lisaer encouraged as perhaps a more comfortable communication approach for her. She is agreeable to this plan with support of FOB who was present for the visit today. High-risk 11/23/2020 07/31/19 Overview (05/05/2021): Problem Action Taken Date entered [...] as of this encounter (statuses as of 10/17/2024) Immunizations Name Administration Dates Next Due Covid-19 [...] Answer Date Recorded PHQ-2 Score 12 07/27/2019 [place] Depression Scale Answer Date Recorded [place] Depression Scale Total 7 08/30/2021 The thought [...] on file documented as of this encounter Miscellaneous Notes * Telephone Encounter - Mariann Esteban - 10/16/2024 11:05 PM EDT Received message from [facility] regarding patient needing an appointment and labs. Patient was notified. Successfully contacted patient and provided [facility] message. * Telephone Encounter - Stacy Gant [facility] - 10/15/2024 10:44 AM EDTSigned Prescriptions: Disp Refills buPROPion HCl ER (XL) 150 MG Oral Tablet E*30 Tab*0 Sig: Take 1 Tablet by mouth in the morning. Authorizing Provider: SANDRA IYER User: STACY GANT * Telephone Encounter - Stacy Gant [facility] - 10/15/2024 10:40 AM EDT Patient due for office visit and labs next month Last couple appts were follow up for head-ache Provided 30 days supply with 0 refill. Reviewed : AMP report Care Gaps/Health Maintenance medications list for any routine labs typically ordered for this patient. Lab orders placed. Please contact patient to schedule office visit with PRIMARY CARE and advise of labs ordered for blood draw. Recommend patient to fast if able for labs. Patient may still have water and regular medications. Advise to obtain labs after her scheduled office visit Visit date not found. Last Visit: 09/21/2024 (in office), 09/26/2024 (telemedicine) Next Visit: Visit date not found Thank You, Stacy Gant [facility] Clinical Pharmacist [facility] [phone] [id number] 10/15/2024, 10:43 AM documented in this encounter Plan of Treatment Upcoming Encounters Date Type Department Care Team (Late st Contact Info) Description 01/06/2025 5:00 PM EDT Telemedicine Nutrition and Weight Management [address] [address] Bisi Chatman CRNP [address] [place] [address] Scheduled Orders Name Type Priority Associated Diagnoses Orde r Schedule BASIC METABOLIC PANEL Lab Routine Encounter for long-term (current) use of medications Expected: 10/15/2024 (Approximate), Expires: 10/15/2025 LIPID PANEL WITH DIRECT LDL IF TG IS HIGH Lab Routine Laboratory exam ordered as part of routine general medical examination Expected: 10/15/2024 (Approximate), Expires: 10/15/2025 Health Maintenance Due Date Last Done Comments [...] trimester Encounter for long-term (current) use of medications- Primary Encounter for long-term (current) use of other medications Depression with anxiety Dysthymic disorder Laboratory exam ordered as part of routine [...]
--- OUTSIDE RECORDS SUMMARY | 2024-10-21 11:01 | External Medical Summary | Summary of Care ---
Author Name Unknown Organization [facility] Address [address] [place] [address] Phone [phone] Care Team Providers Care Oil Boiler Name Role Phone Unavailable Primary Care Provider Unavailabl e Reason for Visit * Reason Onset Date Comments Pt Portal Advice 10/08/2024 Encounter Details Date Type Department Care Team (Late st Contact Info) Description 10/08/2024 Telephone Nutrition & Weight Management, [place] [address], [place] [id number] Porfirio Brunson PA-C [address] [place] [address] Pt Portal Advice Allergies No known active allergiesdocumented as of this encounter (statuses as of 10/08/2024) Medications Methadone HCl 10 MG/5ML Oral Solution Take 42 mL by mouth every morning. Active buPROPion HCl ER (XL) 150 MG Oral Tablet Extended Release 24 Hour (Wellbutrin XL)Indications:D epression with anxiety Take 1 Tablet by mouth in the morning. 30 Tablet 5 02/28/2024 8:22 AM EDT 4 Active Multi For Her Oral Tablet Take 1 Tablet by mouth in the morning. Active Amitriptyline HCl 25 MG Oral Tablet (Elavil)Indicati ons:Migraine without aura and without status migrainosus, not intractable Take a half tablet by mouth at bedtime for 1-2 weeks, then increase to a full tablet by mouth at bedtime if tolerating. 30 Tablet 5 Active documented as of this encounter (statuses as of 10/08/2024) Active Problems Problem Noted Date Diagnosed Date SAB (spontaneous ) 12/17/2023 Overview (12/17/2023): Beta hcg 361 on 11/26/23 and 300 on 12/17/23. No heart tones visualized on ultrasound on 12/16/23. Urinary tract infection in m other during first trimester of 11/28/2023 Overview (11/28/2023): Treated /2. Will need GRETA in 4 weeks. History [...] as of this encounter (statuses as of 10/08/2024) Resolved Problems Problem Noted Date Diagnosed Date [...] all times; naloxone is available at all [place] pharmacies without a prescription. Methadone and buprenorphine [...] likely will seek out. DFeclines referral to [facility] today. Denies SI or HI. Assessment & [...] exposure during and after delivery. Quitting Cold [place] is safe in . Consider Nicorette 2 [...] follow up apts. 11/29/[address] visit [address] [facility] in [place] and then no show for f/u 12/02/20 and not returning their calls. 12/21/20, MFM consult- Patient reports using IV Heroin daily secondary to noncompliance with MAT f/u, and amphetamines off and on several times a week. She iindicates she does have Narcan in the event of overdose. Expresses issues with driving to [place] for MAT. [facility] friends have told her of closer providers in [place] "but there's probably a waiting list". Also she is considering Methadone as an option or De-tox but then expresses barrier of having to de-tox in order to use subutex. "I don't like that I have to get sick in order to get started." Has seen calls from [email or web address] number but not returning as concerned it could be a creditor call. States she does have the MAT number to reach out to. [facility] she would be interested in establishing a [employer] account and I texted her those Instructions. +cocaine and fentanyl in UDS per methadone clinic 04/13 Assessment & Plan (06/23/2021 4:55 PM EST): Overview: Has taken cocaine, fentanyl, methamphetamines; currently taking methadone maintenance. Considerations: Recent urine toxicology screen not available. Recommendations: Abstain from all methamphetamine and cocaine products during and . Avoid second hand smoke exposure. Quitting [place] is safe in . Ensure a Narcan [...] initiated treatment at a methadone clinic in [place]. She is currently taking 50 mg daily [...] reach out to the MAT folks in [place] in order to get back on track [...] as of this encounter (statuses as of 10/08/2024) Immunizations Name Administration Dates Next Due Covid-19 [...] Answer Date Recorded PHQ-2 Score 12 07/27/2019 [place] Depression Scale Answer Date Recorded [place] Depression Scale Total 7 08/30/2021 The thought [...] as of this encounter Plan of Treatment Health Maintenance Due Date Last Done Comments HPV (Gardasil) Vaccine (2 - 3-dose series) 06/09/2010 05/12/2010 Depression Monitoring 07/27/2020 07/27/2019 HPV/Co-Test 2023 COVID-19 [...]
--- OUTSIDE RECORDS SUMMARY | 2024-10-21 11:01 | External Medical Summary | Summary of Care ---
Author Name Unknown Organization [facility] Address [address] [facility] [place] [address] Phone [phone] Care Team Providers Care Refinish Technician Name Role Phone Unavailable Primary Care Provider Unavailabl e Reason for Visit * Reason Comments Re-Check 8 week-- migraines, started amitriptyline 25 mg Encounter Details Date Type Department Care Team (Late st Contact Info) Description 09/21/2024 3:20 PM EST Office Visit Family Practice [facility] [address] [place] [address] Sandra Nava CRNP [address] [place] [address] Migraine without aura and without status migrainosus, not intractable*; Excessive daytime sleepiness; Severe obesity with body mass index (BMI) of 35.0 to 39.9 with serious comorbidity (HCC) Allergies No known active allergiesdocumented as of this encounter (statuses as of 09/22/2024) Medications Methadone HCl 10 MG/5ML Oral Solution [...] as of this encounter (statuses as of 09/22/2024) Active Problems Problem Noted Date Diagnosed Date [...] as of this encounter (statuses as of 09/22/2024) Resolved Problems Problem Noted Date Diagnosed Date [...] all times; naloxone is available at all [place] pharmacies without a prescription. Methadone and buprenorphine [...] likely will seek out. DFeclines referral to [facility] today. Denies SI or HI. Assessment [...] exposure during and after delivery. Quitting [place] is safe in . Consider Nicorette 2 [...] apts. 11/29/20 Initial visit at MAT in [place] and then no show for f/u 12/02/20 and not returning their calls. 12/21/20, MFM consult- Patient reports using IV Heroin daily secondary to noncompliance with MAT f/u, and amphetamines off and on several times a week. She iindicates she does have Narcan in the event of overdose. Expresses issues with driving to [place] for MAT. [facility] friends have told her of closer providers in [place] "but there's probably a waiting list". Also she is considering Methadone as an option or De-tox but then expresses barrier of having to de-tox in order to use subutex. "I don't like that I have to get sick in order to get started." Has seen calls from [place] number but not returning as concerned it could be a creditor call. [facility] she does have the MAT number to reach out to. [facility] she would be interested in establishing a [employer] account and I texted her those Instructions. +cocaine and fentanyl in UDS per methadone clinic 04/13 Assessment & Plan (06/23/2021 4:55 PM EST): Overview: Has taken cocaine, fentanyl, methamphetamines; currently taking methadone maintenance. Considerations: Recent urine toxicology screen not available. Recommendations: Abstain from all methamphetamine and cocaine products during and . Avoid second hand smoke exposure. Quitting [place] is safe in . Ensure a Narcan [...] initiated treatment at a methadone clinic in [place]. She is currently taking 50 mg daily [...] reach out to the MAT folks in [place] in order to get back on track either there or through referral by them to closer option. She is aware that the ball is in her court. [facility] encouraged as perhaps a more comfortable communication [...] as of this encounter (statuses as of 09/22/2024) Immunizations Name Administration Dates Next Due Covid-19 [...] Answer Date Recorded PHQ-2 Score 12 07/27/2019 [place] Depression Scale Answer Date Recorded [place] Depression Scale Total 7 08/30/2021 The thought [...] on file documented as of this encounter Last Filed Vital Signs Vital Sign Reading Time Taken Comments Blood Pressure 116/82 09/21/2024 3:22 PM EST Pulse 87 09/21/2024 3:22 PM EST Temperature 36.7 C (98.1 F) 09/21/2024 3:22 PM ES T Respiratory Rate - - Oxygen Saturation 96% 09/21/2024 3:22 PM EST Inhaled Oxygen Concentration - - Weight - - Height 157.5 cm (5' 2") 09/21/2024 3:22 PM EST Body Mass Index - - documented in this encounter Progress Notes * Sandra Nava CRNP - 09/21/2024 3:23 PM EST Images from the original note were not included. Subjective Crystal Ward is a 29 year old female that presents for Re-Check (8 week-- migraines, started amitriptyline 25 mg) History of Present Illness The patient, with a history of migraines, reports improvement on amitriptyline. She prefers it to the previous medication due to less midday fatigue. She has had some headaches, but no severe migraines, and symptoms are manageable with Excedrin. She has noticed dry mouth, but it is not bothersome. She has not started the recommended magnesium and B supplement. She also reports irregular bowel movements, but this is not a new symptom. She has a sleep study scheduled for November. Objective Vitals: 09/21/24 1522 Temp: 98.1 F (36.7 C) Pulse: 87 SpO2: 96% BP: 116/82 Physical Exam Physical Exam Vitals reviewed. Constitutional: General: She is not in acute distress. Neurological: Mental Status: She is alert and oriented to person, place, and time. Psychiatric: Behavior: Behavior normal. Thought Content: Thought content normal. I have reviewed the following results: Results Assessment and Plan Assessment & Plan Migraine Improvement noted with Amitriptyline. Mild side effect of dry mouth reported. No significant constipation. Patient prefers to maintain current dose due to fear of increased side effects with dose escalation. -Continue Amitriptyline at current dose. -Consider adding B complex and Magnesium supplements for additional migraine prophylaxis. Sleep Apnea Sleep study scheduled for November 2024 to evaluate for possible sleep apnea. -Encourage patient to attend scheduled sleep study. Follow-up in 6 months or sooner if issues arise. Patient also scheduled to see weight management inMay 2024. Migraine without aura and without status migrainosus, not intractable (Primary) Excessive daytime sleepiness Severe obesity with body mass index (BMI) of 35.0 to 39.9 with serious comorbidity (HCC) Wrap-Up Follow Up: Return in about 6 months (around 03/21/2025), or if symptoms worsen or fail to improve. Time: I spent a total of 10-19 minutes (exact time 12 mins) on the date of service in preparation, delivery, and documentation of the care provided to Crystal Ward excluding any time spent in the performance of separately billed services. Text in this note was generated using an ambient documentation service. I discussed the use of a device to record and summarize our discussion today. All persons present during the encounter consented to its use. documented in this encounter Nursing Notes * Lilia Velasquez LPN - 09/21/2024 3:21 PM EST The patient has been properly identified by confirmation of name and date of . Chief Complaint Patient presents with Re-Check 8 week-- migraines, started amitriptyline 25 mg Pt states things are going better. Not getting the midday fatigue. Is currently taking the 25 mg. Afew h/a here and there that resolved with excendrine. No migraines the past 2 months. documented in this encounter Plan of Treatment Upcoming Encounters Date Type Department Care Team (Late st Contact Info) Description 12/10/2024 9:00 AM EDT Telemedicine Nutrition & Weight Management, [address] [place] [address] Paula Jc MD [address] [facility] [place] [id number] Health Maintenance Due Date Last Done Comments HPV (Gardasil) Vaccine (2 - 3-dose series) 06/09/2010 05/12/2010 Depression Monitoring 07/27/2020 07/27/2019 HPV/Co-Test 2023 COVID-19 Vaccine (2 - 2023- season) 2024 07/04/2021 Influenza Vaccine (FLU shot) [...] antepartum Supervision of high-risk , third trimester Migraine without aura and without status migrainosus, not intractable- Primary Migraine without aura, without mention of intractable migraine without mention of status migrainosus Excessive daytime sleepiness Severe obesity with body mass index (BMI) of 35.0 to 39.9 with serious comorbidity (HCC) documented in this encounter Advance Directives * Full Code (Latest Code Status on File) Date Activated Date Inactivated Comments 06/29/2021 7:49 AM 07/05/2021 12:19 AM This order reflects the patients wishes and were consensually agreed upon.
--- OUTSIDE RECORDS SUMMARY | 2024-10-21 11:01 | External Medical Summary | Summary of Care ---
Author Name Unknown Organization [facility] Address [address] [place] [address] Phone [phone] Care Team Providers Care Payroll Accounting Manager Name Role Phone Unavailable Primary Care Provider Unavailabl e Reason for Visit * Evaluate & Treat - Unlimited Visits (Within 10 days (routine)) - Authorized Specialty Diagnoses / Procedures Referred By Contact Referred To Contact GI NUTRITION/IM / Gastroenterology Diagnoses Severe obesity with body mass index (BMI) of 35.0 to 39.9 with serious comorbidity (HCC) Sandra Nava CRNP [address] [place] [address] Phone: tel:[phone] fax:[phone] Referral ID Status Reason Start Date Expiration Date Visits Requested Visits Authorized [id number] Authorized Specialty Services Required 4 06/22/2025 [id number] Encounter Details Date Type Department Care Team (Late st Contact Info) Description 10/08/2024 10:00 AM EDT [facility] [address] [place] [address] Porfirio Brunson PA-C [address] [place] [address] Abnormal weight gain*; Encounter for weight management; Obesity (BMI 30.0-34.9); Other migraine without status migrainosus, not intractable; IFG (impaired fasting glucose); Depression with anxiety; At risk for obstructive sleep apnea Allergies No known active allergiesdocumented as of [...] if tolerating. 30 Tablet 5 4 Active documented as of this encounter (statuses [...] all times; naloxone is available at all [place] pharmacies without a prescription. Methadone and buprenorphine [...] on use with . Not currently in counslei but aware of resources and likely will seek out. DFeclines referral to [facility] today. Denies SI or HI. Assessment [...] exposure during and after delivery. Quitting [place] is safe in . Consider Nicorette 2 [...] apts. 11/29/20 Initial visit at MAT in [place] and then no show for f/u 12/02/20 and not returning their calls. 12/21/20, [facility] consult- Patient reports using IV Heroin daily secondary to noncompliance with MAT f/u, and amphetamines off and on several times a week. She iindicates she does have Narcan in the event of overdose. Expresses issues with driving to [place] for MAT. [facility] friends have told her of closer providers in [place] "but there's probably a waiting list". Also she is considering Methadone as an option or De-tox but then expresses barrier of having to de-tox in order to use subutex. "I don't like that I have to get sick in order to get started." Has seen calls from [place] number but not returning as concerned it could be a creditor call. States she does have the MAT number to reach out to. States she would be interested in establishing a [facility] [facility] account and I texted her those Instructions. +cocaine and fentanyl in UDS per methadone clinic 04/13 Assessment & Plan (06/23/2021 4:55 PM EST): Overview: Has taken cocaine, fentanyl, methamphetamines; currently taking methadone maintenance. Considerations: Recent urine toxicology screen not available. Recommendations: Abstain from all methamphetamine and cocaine products during and . Avoid second hand smoke exposure. Quitting [place] is safe in . Ensure a Narcan [...] initiated treatment at a methadone clinic in [place]. She is currently taking 50 mg daily [...] reach out to the MAT folks in [place] in order to get back on track either there or through referral by them to closer option. She is aware that the ball is in her court. [facility] encouraged as perhaps a more comfortable communication [...] Answer Date Recorded PHQ-2 Score 12 07/27/2019 [place] Depression Scale Answer Date Recorded [place] Depression Scale Total 7 08/30/2021 The thought [...] Sign Reading Time Taken Comments Blood Pressure - - Pulse - - Temperature - - Respiratory Rate - - Oxygen Saturation - - Inhaled Oxygen Concentration - - Weight 79.8 kg (176 lb) 10/08/2024 2:02 PM EDT Height 157.5 cm (5' 2") 10/08/2024 2:02 PM EDT Body Mass Index 32.19 10/08/2024 2:02 PM EDT documented in this encounter Progress Notes * Porfirio Brunson PA-C - 10/08/2024 10:00 AM EDT [facility] CONSULTATION Referring Physician: Sandra ROMEO PCP: No primary care provider on file. Patient location: HOME. I was in a hospital or clinic location. After connecting through [facility],patient was verified with two unique identifiers. Patient (or authorized legal communications representative) was then informed that this was a Telemedicine visit and being conducted confidentially over secure lines. Methods to assure confidentiality were taken. Patient acknowledged consent and understanding of pr ivacy and security of the Telemedicine visit. The patient agreed to participate. Source of information: Patient Available records reviewed: Recent provider visits, Imaging, and Labs Reason for Referral: Weight Management HPI: Crystal Ward is a 29 year old patient who presents to the [facility] for further recommendations and has Severe obesity with body mass index (BMI) of 35.0 to 39.9 with serious comorbidity (HCC); Tobacco use disorder; Bilateral hand swelling; Bilateral swelling of feet;Chronic viral hepatitis (HCC); History of hepatitis C; Urinary tract infection in mother during first trimester of ; and SAB (spontaneous ) on their problem list. 10/08/2024 Here for help with weight loss. Would like to lose to feel better and improve health. Has tried eating less calorie dense foods. Tried intermittent fasting and gym regimen. Weight doesn't want to come off like it did. She is taking elavil for migraine prevention which has helped. On chronic methadone therapy for oud in remission for years. Is using bupropion for depression/anxiety management. Previous Weight Management Interventions: The patient has tried weight loss in the past without significant detention success. Previous interventions: Self-directed. The patient denies any past pharmacotherapy for weight loss. Weight history: Wt Readings from Last 8 Encounters: 01/24/24 79.8 kg (176 lb) 01/07/24 82.4 kg (181 lb 9.6 oz) 11/26/23 81.6 kg (180 lb) 10/31/23 80.8 kg (178 lb 0.6 oz) 08/29/23 74.8 kg (165 lb) 01/04/22 75 kg (165 lb 6.4 oz) 11/10/21 78.8 kg (173 lb 11.2 oz) 10/31/21 80.9 kg (178 lb 6.4 oz) BMI Readings from Last 8 Encounters: 09/21/24 32.19 kg/m 01/24/24 32.19 kg/m 01/07/24 33.22 kg/m 11/26/23 32.92 kg/m 10/31/23 32.56 kg/m 08/29/23 30.18 kg/m 01/04/22 30.25 kg/m 11/10/21 31.77 kg/m Current Diet: Describes typical diet history/24 hr recall Breakfast: protein smoothie, pb crackers Lunch: fruit parfait and grapes. Dinner: bagel Snacks: none Drinks: coffee and water Restaurant meals: daily for lunch (parfait v salad). Once a week for dinner. Activity: ADLs Walking Past Medical History: Diagnosis Date AC PYELONEPHRITIS NOS 06/10/2009 Acute suppurative otitis media Occasional Anxiety and depression Drug abuse (HCC) Dysplasia of cervix, low grade ([place] 1) 12/2020 repeat pap 10/2021 Hepatitis C antibody positive in blood States noted "years ago with f/u suggesting past exposure and noactive disease. 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 buPROPion HCl ER (XL) 150 MG Oral Tablet Extended Release 24 Hour (Wellbutrin XL) Take 1 Tablet by mouth in the morning. 30 Tablet 5 Multi For Her Oral Tablet Take 1 Tablet by mouth in the morning. Amitriptyline HCl 25 MG Oral Tablet (Elavil) Take a half tablet by mouth at bedtime for 1-2 weeks, then increase to a full tablet by mouth at bedtime if tolerating. 30 Tablet 5 No current facility-administered medications for this visit. Review of patient's allergies indicates: No Known Allergies Review of Systems: Psychosocial Alcohol: None Tobacco Use: Yes, smokes vapes per day Drug Use: No - in remission. Adjustment Issues: No, no Issues with no Depression: Stable Taking medication Other Confirmed Mental Health Diagnosis: anxiety/panic disorder General Glaucoma: No Cardiovascular Symptoms: No chest pain, No shortness of breath, No dyspnea on exertion, No orthopnea, No edema, Nopalpitations, and No syncope Hypertension: No BP Readings from Last 4 Encounters: 09/21/24 116/82 07/27/24 108/72 01/24/24 110/80 11/26/23 102/68 CAD/CHF/arrhythmias/valve disease: No History of stroke or TIA: No Pulmonary Asthma: No COPD: No There are no exam notes on file for this visit. Sleep Apnea: No - sleep study ordered. Endocrine Patient denies personal or family history of medullary thyroid carcinoma. Patient denies personal or family history of multiple endocrine neoplasia syndrome. Insulin Resistance: No Diabetes: No No results found for: "HEMOGLOBIN A1C" Lab Results Component Value Date/Time GLUCOSE - [facility] 114 11/14/2023 03:02 PM GLUCOSE - [facility] 95 05/03/2023 10:43 AM GLUCOSE - [facility] 83 11/09/2021 02:43 PM GLUCOSE - [facility] 91 06/10/2009 11:34 AM GLUCOSE - [facility] 80 05/03/2009 02:57 PM GLUCOSE, URINE - [facility] Negative 07/31/2021 12:00 AM GLUCOSE, URINE - [facility] neg 12/22/2009 12:00 AM GLUCOSE, URINE - [facility] NEGATIVE 06/13/2009 04:34 PM GLUCOSE, URINE - [facility] neg 05/06/2009 01:47 PM Dyslipidemia: No GI Symptoms: No abdominal pain, No change in bowel habits, No significant heartburn, No significant change in appetite, No nausea, vomiting, diarrhea, or constipation, No hematemesis, No blood in stoolsor black tarry stools, No abdominal bloating or early satiety, and No dysphagia GERD: No Fatty Liver: no Pancreatitis: no GB disease: no Renal History of nephrolithiasis: No. CKD: no Musculoskeletal Spinal disorders / Back pain: No Fibromyalgia: No Osteoarthritis: No Reproductive Polycystic ovarian syndrome: No Menstrual Cycle: Yes, reg Control: No Neuro Seizures: No IIH/Pseudotumor: No Headaches chronically: Yes PHYSICAL EXAMINATION: There were no vitals taken for this visit. General: Well-developed, non-dysmorphic, obese, comfortable, NAD HEENT: Normocephalic/atraumatic. Sclera non-icteric, MMM Neck: FROM. No thyromegaly or tracheal deviation. Lungs: breathing comfortably; no conversational dyspnea Cardiovascular: extremities well-perfused Extremities: full range of motion. Skin: no evidence of bleeding or bruising, no edema, and no acanthosis nigricans noted on neck Psych: normal mood and affect Neuro: no gross motor deficits, speech normal pitch and speed, AAOx3 ASSESSMENT AND PLAN: Abnormal weight gain (Primary) Encounter for weight management Obesity (BMI 30.0-34.9) Other migraine without status migrainosus, not intractable IFG (impaired fasting glucose) Depression with anxiety At risk for obstructive sleep apnea Crystal Ward is a 29 year old patient who presents for further weight management guidance. Abnormal weight gain / There is no height or weight on file to calculate BMI. / Class I obesity. Discussed weight management options and the patient would like to proceed with conservative and medication weight management. Barriers are consistency. Motivators are feeling better, avoiding/reducing comorbid conditions. Patient goals were discussed in detail at visit. Weight loss will benefit the medical conditions noted in the assessment. Handouts regarding nutrition and physical activity were provided, as appropriate, and the role of weight loss in improving the above chronic conditions was reviewed. Explained to the patient that they can lose on average ~5-10% of current weight with medical management, ~10-15% with medication use, and ~60% with bariatric surgery. Verbal and written information on the following was provided today. Recommendations: Keep a food log (use gutierrez My Fitness Pal or Lose It!) Goal 1500 Calories/day with goal protein of 110 g/day. Drink at least 64 oz (2 liters) of water daily. Don't skip meals. Eat breakfast within 1 hour of waking up. Choose whole, natural foods (fruits, vegetables, lean proteins, & healthy fats). Avoid rice, pasta, bread, potato, processed/refined foods & sugary foods/beverages Replace carb and fat with a protein source in each meal (use gutierrez Fit Men Cook) Snacks should be around 100-200 calories between meals. Increase vegetables to at least 3 servings daily and fruits 1 serving daily. Goal of 30-45 minutes of exercise 5-7 times a week Be mindful of eating; chew each bite 20 times before swallowing. Eat slowly 20- 30 minutes per meal. Try these alternative food options: Protein shakes- Premier, Pure protein, Fairlife (30g or 42g protein), Iconic Lactose free protein shakes- Fairlife, Ripple, Iconic, [place] Protein bars- Quest, Pure protein Ice cream- Rubin's, Yasso, Enlightened, Halo Top Coffee Creamer- Super Creamer, [place] Far[place] BetterHalf Unsweetened, Silk [place] Creamer Chips- Quest protein chips, Cheese crisps Bread- 647 wheat, Protein Keto bread, whole wheat shweta bread, low carb/high protein wraps Pasta- Chickpea pasta, Pasta zero or similar Rice- Cauliflower rice, quinoa, brown rice Fruits- berries, cantaloupe, peaches, apples, oranges Yogurt- Ratio (25g protein), Skyr, Two good, Chobani 60 brianna or 100 brianna, Oikos triple zero Sugar alternatives- Stevia, Monk fruit, Swerve Discussed lifestyle changes as outlined above as well as the following Anti- Obesity Medication (AOM) options (risks, benefits, side effects, relation to current medical conditions and medications, and there are no identified contraindications for use unless noted below): Qsymia (Phentermine/Topiramate) Contrave (Buproprion/Naltrexone) GLP-1RA (liraglutide, semaglutide) or GLP1/GIP (tirzepatide) Metformin Orlistat Crystal Ward has decided to move forward with the following medication in addition to lifestyle modifications (in order of preference): ? Not sure ? Glp1 - doesn't meet gce criteria so would need to pursue outside health system Phentermine - not ideal given history of OUD but in remission for years and ongoing medical management. Metformin v orlistat - little efficacy Contrave - contraindicated due to chronic opiate use. Crystal Ward has decided to pursue bariatric surgery: no Goals: An initial goal for weight loss is 10% of your initial body weight (17 lbs) in 6 months. This has been shown to improve blood pressure, cholesterol and sugar levels, improve heart health, improve fertility, improve inflammation and joint pains, improve sleep quality, and reduce cancer risk. Don't skip meals and eat meals slowly (20 minutes). Have quality protein with each meal with goal of 30-40 grams per meal minimum. Limit simple carbohydrate portions and snacks (potatoes, white bread, regular pasta, rice, crackers/pretzels, soda/juice, etc) and replace with complex carbohydrates (whole grain pasta/bread, veggies, fibrous fruits, berries, beans, etc). Start aerobic exercise once a week for 30 minutes. Get the heart rate up and keep it there during that time. Consider home exercises with free YouTube videos and there are seated and lying down exercises that can be done if you have mobility/pain issues. After 3 weeks try and add another day of exercise. Ultimately, it is recommended to have a minimum of 5 episodes of aerobics and 2 episodes of strengthening per week for a total of at least 150 minutes. Consider Medication-Assisted Therapy (MAT) we reviewed Time spent with patient 60 minutes. More than 50% of my time spent with patient providing counseling about the benefits of weight loss, about the patient's nutritional status, detailed explanations about calorie count, types of nutrients to choose, and composition of the meals. Reviewed and discussed weight, weight trends and pertinent labs and test results. Motivational interview provided in order to prepare the patient to achieve future goals. The patient agreed to try the plan as discussed and return in 3 month(s). The patient was encouraged to call or send a patient portal message in the meantime with any questions or concerns prior to their next clinic visit. Porfirio Brunson PA-C [facility] [place] P [phone] | P [phone] | F [phone] documented in this encounter Plan of Treatment Scheduled Referrals Name Type Priority Associated Diagnoses Orde r Schedule GI NUTRITION REFERRAL OP Referral Within 10 days (routine) Severe obesity with body mass index (BMI) of 35.0 to 39.9 with serious comorbidity (HCC) Ordered: 06/22/2024 Health Maintenance Due Date Last Done Comments [...] antepartum Supervision of high-risk , third trimester Abnormal weight gain- Primary Encounter for weight management Obesity (BMI 30.0-34.9) Obesity, unspecified Other migraine without status migrainosus, not intractable IFG (impaired fasting glucose) Impaired fasting glucose Depression with anxiety Dysthymic disorder At risk for obstructive sleep apnea documented in this encounter Advance Directives * Full Code (Latest Code Status on File) Date Activated Date Inactivated Comments 06/29/2021 7:49 AM 07/05/2021 12:19 AM This order reflects the patients wishes and were consensually agreed upon.
--- OUTSIDE RECORDS SUMMARY | 2024-10-21 11:01 | External Medical Summary | Summary of Care ---
Author Name Unknown Organization [facility] Address [address] [facility] [place] [address] Phone [phone] Care Team Providers Care Assistant Professor In Family Studies Name Role Phone Unavailable Primary Care Provider Unavailabl e Reason for Visit * Reason Comments Acute Pt being seen for ri ght wrist pain ? Carpal tunnel. Has been going on for about a year. Encounter Details Date Type Department Care Team (Late st Contact Info) Description 09/26/2024 4:20 PM [facility] Telemedicine Family Practice [facility] [address] [place] [address] Sandra Nava CRNP [address] [facility] [place] [address] Right wrist pain*; Right hand paresthesia Allergies No known active allergiesdocumented as of this encounter (statuses as of 09/26/2024) Medications Methadone HCl 10 MG/5ML Oral Solution [...] as of this encounter (statuses as of 09/26/2024) Active Problems Problem Noted Date Diagnosed Date [...] as of this encounter (statuses as of 09/26/2024) Resolved Problems Problem Noted Date Diagnosed Date [...] all times; naloxone is available at all [place] pharmacies without a prescription. Methadone and buprenorphine [...] likely will seek out. DFeclines referral to [facility] today. Denies SI or HI. Assessment [...] exposure during and after delivery. Quitting Cold [place] is safe in . Consider Nicorette 2 [...] She has an appointment with hepatology on 9/16/21. Assessment & Plan (12/21/2020 3:43 PM EDT): [...] apts. 11/29/20 Initial visit at MAT in [place] and then no show for f/u 12/02/20 and not returning their calls. 12/21/20, MFM consult- Patient reports using IV Heroin daily secondary to noncompliance with MAT f/u, and amphetamines off and on several times a week. She iindicates she does have Narcan in the event of overdose. Expresses issues with driving to [place] for MAT. [facility] friends have told her of closer providers in [place] "but there's probably a waiting list". Also she is considering Methadone as an option or De-tox but then expresses barrier of having to de-tox in order to use subutex. "I don't like that I have to get sick in order to get started." Has seen calls from [place] number but not returning as concerned it could be a creditor call. States she does have the MAT number to reach out to. States she would be interested in establishing a [employer] account and I texted her those Instructions. +cocaine and fentanyl in UDS per methadone clinic 04/13 Assessment & Plan (06/23/2021 4:55 PM EST): Overview: Has taken cocaine, fentanyl, methamphetamines; currently taking methadone maintenance. Considerations: Recent urine toxicology screen not available. Recommendations: Abstain from all methamphetamine and cocaine products during and . Avoid second hand smoke exposure. Quitting [place] is safe in . Ensure a Narcan [...] initiated treatment at a methadone clinic in [place]. She is currently taking 50 mg daily [...] reach out to the MAT folks in [place] in order to get back on track [...] as of this encounter (statuses as of 09/26/2024) Immunizations Name Administration Dates Next Due Covid-19 [...] Answer Date Recorded PHQ-2 Score 12 07/27/2019 [place] Depression Scale Answer Date Recorded [place] Depression Scale Total 7 08/30/2021 The thought [...] on file documented as of this encounter Progress Notes * Sandra Nava CRNP - 09/26/2024 4:20 PM EST Images from the original note were not included. Subjective Crystal Ward is a 29 year old female that presents for Acute (Pt being seen for right wrist pain ? Carpal tunnel. 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 The pain is not constant but is usually triggered by work, especially during hygiene procedures that require extensive use of the right wrist. She describes the sensation as a "weird tingly electric feeling" that radiates from the wrist to the elbow. The pain has been progressively worsening to the point where she almost dropped her handpiece during a procedure. The pain starts at the wrist and radiates towards the elbow, predominantly on the ulnar side of the wrist. The numbness is mostly in the pinky and ring finger, but it occasionally jolts through the entire hand. She also experiences hand numbness upon waking up, which resolves after shaking it out for about a minute. Objective There were no vitals filed for this visit. Physical Exam Physical Exam Constitutional: General: She is not in acute distress. Neurological: Mental Status: She is alert and oriented to person, place, and time. Psychiatric: Behavior: Behavior normal. Thought Content: Thought content normal. I have reviewed the following results: Results Assessment and Plan Assessment & Plan Suspect Carpal Tunnel Syndrome Right wrist pain with numbness and tingling radiating to the elbow, predominantly affecting the pinky and ring finger. Symptoms are exacerbated by repetitive hand use at work and occasionally presentupon waking. Discussed the benefits of wrist splinting, exercises, and NSAIDs to reduce inflammation and improve symptoms. Also discussed potential future interventions including EMG, steroid injections, and surgery if conservative measures fail. -Purchase and wear a carpal tunnel wrist brace at night. -Perform carpal tunnel exercises as provided in the link. -Take a course of NSAIDs such as ibuprofen or Aleve for 10-14 days as directed on the bottle to reduce inflammation. -Consider referral to orthopedics for further evaluation and potential intervention if symptoms do not improve or worsen. Right wrist pain (Primary) Right hand paresthesia Wrap-Up Follow Up: Return if symptoms worsen or fail to improve. Time: I spent a total of 10-19 minutes (exact time 15 mins) on the date of service in preparation, delivery, and documentation of the care provided to Crystal Ward excluding any time spent in the performance of separately billed services. Text in this note was generated using an [employer] documentation service. I discussed the use of a device to record and summarize our discussion today. All persons present during the encounter consented to its use. Telemedicine: Patient location: HOME. I was in a hospital or clinic location. After connecting through televideo,patient was verified with two unique identifiers. Patient (or authorized legal outreach representative) was then informed that this was a Telemedicine visit and being conducted confidentially over secure lines. Methods to assure confidentiality were taken. Patient acknowledged consent and understanding of pr ivacy and security of the Telemedicine visit. The patient agreed to participate. documented in this encounter Plan of Treatment Upcoming Encounters Date Type Department Care Team (Late st Contact Info) Description 12/10/2024 9:00 AM EDT Telemedicine Nutrition & Weight Management, [facility] [address] [place] [address] Paula Jc MD [address] [place] [address] Health Maintenance Due Date Last Done Comments [...] antepartum Supervision of high-risk , third trimester Right wrist pain- Primary Pain in joint, forearm Right hand paresthesia Disturbance of skin sensation documented in this encounter Advance Directives * Full Code (Latest Code Status on File) Date Activated Date Inactivated Comments 06/29/2021 7:49 AM 07/05/2021 12:19 AM This order reflects the patients wishes and were consensually agreed upon.
--- OUTSIDE RECORDS SUMMARY | 2024-10-21 11:02 | External Medical Summary | Summary of Care ---
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 Active buPROPion HCl ER (XL) 150 MG Oral Tablet Extended Release 24 Hour (Wellbutrin XL)Indications: Depression with anxiety Take 1 Tablet by mouth in the morning. 30 Tablet 5 02/28/2024 8:22 AM EDT 4 Active Multi For Her Oral Tablet Take 1 Tablet by mouth in the morning. Active Propranolol HCl ER 60 MG Oral Capsule Extended Release 24 Hour (Inderal LA)Indications: Migraine without aura and without status migrainosus, not intractable Take 1 Capsule by mouth in the morning. 30 Capsule 3 4 024 Discontinued documented as of this encounter (statuses as of 07/27/2024) Active Problems Problem Noted Date Diagnosed Date [...] as of this encounter (statuses as of 07/27/2024) Resolved Problems Problem Noted Date Diagnosed Date [...] all times; naloxone is available at all [place] pharmacies without a prescription. Methadone and buprenorphine [...] likely will seek out. DFeclines referral to [facility] today. Denies SI or HI. Assessment [...] exposure during and after delivery. Quitting Cold [place] is safe in . Consider Nicorette 2 [...] apts. 11/29/20 Initial visit at MAT in [place] and then no show for f/u 12/02/20 and not returning their calls. 12/21/20, MFM consult- Patient reports using IV Heroin daily secondary to noncompliance with MAT f/u, and amphetamines off and on several times a week. She iindicates she does have Narcan in the event of overdose. Expresses issues with driving to [place] for MAT. [facility] friends have told her of closer providers in [place] "but there's probably a waiting list". Also she is considering Methadone as an option or De-tox but then expresses barrier of having to de-tox in order to use subutex. "I don't like that I have to get sick in order to get started." Has seen calls from [place] number but not returning as concerned it could be a creditor call. States she does have the MAT number to reach out to. States she would be interested in establishing a [employer] / [employer] account and I texted her those Instructions. +cocaine and fentanyl in UDS per methadone clinic 04/13 Assessment & Plan (06/23/2021 4:55 PM EST): Overview: Has taken cocaine, fentanyl, methamphetamines; currently taking methadone maintenance. Considerations: Recent urine toxicology screen not available. Recommendations: Abstain from all methamphetamine and cocaine products during and . Avoid second hand smoke exposure. Quitting Cold [place] is safe in . Ensure a Narcan [...] initiated treatment at a methadone clinic in [place]. She is currently taking 50 mg [...] reach out to the MAT folks in [place] in order to get back on track [...] as of this encounter (statuses as of 07/27/2024) Immunizations Name Administration Dates Next Due Covid-19 Ad26, Single Dose (Nancy/J&J) 021 DTP/HIB (Tetramune) 1993,1993,1992 DTaP Dipth/Tet/Acell Pertussis (Infanrix), Peds 02/11/1998,05/19/1996 HPV Vaccine, 4-Valent 05/12/2010 Haemophilius B (HIB), unspecified 06/08/1994 Hepatitis A, Ped/Adol., 18 y ear and below, 2-Dose 01/08/2007 Hepatitis B Vaccine 1993,1993,1992 Influenza Vaccine, Live, Int ranasal, Trivalent (Flumist) 08/03/2011 MMR - Measles/Mumps/Rubella Vaccine 01/08/2007,1 1993 Meningococcal Conjugate Vacc ine (Menactra/Menveo) 03/03/2009 OPV - Polio Virus Vaccine (Oral) 05/19/1996,05/30,1993 PPD 07/27/2019 Pneumococcal Conjugate Vacci ne, 20-valent ([id number]) 01/04/2022 Seasonal Influenza Vac., MDV , IM, 0.5 mL (Fluzone) 05/12/2010,04/13/2009 Seasonal Influenza, PF, 6 M & above, IM , (FluLaval or Fluzone) 07/27/2019,09/24/2017 TD - Tetanus/Diptheria (ADULT) 01/10/2004 TDAP (age 10 and older)(Boostrix) 07/27/2019 TDAP, Age 7 and older, IM (Adacel) 03/03/2009 Varicella Vaccine (Chicken Pox) 03/03/2009,05/19 documented as of this encounter Social History Tobacco Use Types Packs/Day Years Used Date Smoking Tobacco: Former Cigarettes 0.3 15 0 12/05/2020 - 10/28/2006 Smokeless Tobacco: Never Alcohol Use Standard Drinks/Week Comments Not Currently 0 (1 standard drink = 0.6 oz pure alcohol) current heroin and amphetamine use PHQ-2 Answer Date Recorded PHQ-2 Score 12 07/27/2019 [place] Depression Scale Answer Date Recorded [place] Depression Scale Total 7 08/30/2021 The thought of harming myself has occurred to me . Never 08/30/2021 Utilities Answer Date Recorded Do you have trouble paying y our heating, water, or electric bill? (Adult - for ages 18 years and over) Not on file 01/14/2024 Is your family able to pay t he heat, water, or electric bill? (Household - for ages 0-17 years) Not on file 01/14/2024 Does your family have access to good internet? (Household - for ages 0-17 years) Not on file 01/14/2024 Social Connections Answer Date Recorded How often do you feel lonely or isolated from those around you? (Adult - for ages 18 years and over) Not on file 01/14/2024 Comments No Sex and Gender Information Value [...] encounter Miscellaneous Notes * Telephone Encounter - Sandra Nava CRNP - 07/27/2024 3:45 PM EST Patient has not heard anything from this department about scheduling - please re-send or look for available appointments * Telephone Encounter - Katiuska Sethi OSA - 06/22/2024 3:46 PM EST Tried to schedule nothing avail please call pt to schedule GI when something opens thank you documented in this encounter Plan of Treatment Health Maintenance [...]
--- OUTSIDE RECORDS SUMMARY | 2024-10-21 11:02 | External Medical Summary | Summary of Care ---
Author Name Unknown Organization [facility] Address [address] [facility] [place] [address] Phone [phone] Care Team Providers Care Night Shift Manager Name Role Phone Unavailable Primary Care Provider Unavailabl e Reason for Visit * Reason Comments Return Visit Marco for migraines Encounter Details Date Type Department Care Team (Late st Contact Info) Description 07/27/2024 3:20 PM EST Office Visit [facility] [address] [place] [address] Sandra Nava CRNP [address] [place] [address] Migraine without aura and without status migrainosus, not intractable*; Excessive daytime sleepiness Allergies No known active allergiesdocumented as of this encounter (statuses as of 08/07/2024) Medications Methadone HCl 10 MG/5ML Oral Solution Take 42 mL by mouth every morning. Active buPROPion HCl ER (XL) 150 MG Oral Tablet Extended Release 24 Hour (Wellbutrin XL)Indications: Depression with anxiety Take 1 Tablet by mouth in the morning. 30 Tablet 5 02/28/2024 8:22 AM EDT 12/05/19 24 Active Multi For Her Oral Tablet Take 1 Tablet by mouth in the morning. Active Amitriptyline HCl 25 MG Oral Tablet (Elavil)Indicat ions:Migraine without aura and without status migrainosus, not intractable Take a half tablet by mouth at bedtime for 1-2 weeks, then increase to a full tablet by mouth at bedtime if tolerating. 30 Tablet 5 07/27/20 Active Propranolol HCl ER 60 MG Oral Capsule Extended Release 24 Hour (Inderal LA)Indications: Migraine without aura and without status migrainosus, not intractable Take 1 Capsule by mouth in the morning. 30 Capsule 3 06/22/20 24 024 Discontinued documented as of this encounter (statuses as of 08/07/2024) Active Problems Problem Noted Date Diagnosed Date [...] as of this encounter (statuses as of 08/07/2024) Resolved Problems Problem Noted Date Diagnosed Date [...] all times; naloxone is available at all [place] pharmacies without a prescription. Methadone and buprenorphine [...] likely will seek out. DFeclines referral to [facility] today. Denies SI or HI. Assessment [...] exposure during and after delivery. Quitting Cold [place] is safe in . Consider Nicorette 2 [...] apts. 11/29/20 Initial visit at MAT in [place] and then no show for f/u 12/02/20 and not returning their calls. 12/21/20, MFM consult- Patient reports using IV Heroin daily secondary to noncompliance with MAT f/u, and amphetamines off and on several times a week. She iindicates she does have Narcan in the event of overdose. Expresses issues with driving to [place] for MAT. [facility] friends have told her of closer providers in [place] "but there's probably a waiting list". Also she is considering Methadone as an option or De-tox but then expresses barrier of having to de-tox in order to use subutex. "I don't like that I have to get sick in order to get started." Has seen calls from [place] number but not returning as concerned it could be a creditor call. [facility] she does have the MAT number to reach out to. [facility] she would be interested in establishing a [employer] account and I texted her those Instructions. +cocaine and fentanyl in UDS per methadone clinic 04/13 Assessment & Plan (06/23/2021 4:55 PM EST): Overview: Has taken cocaine, fentanyl, methamphetamines; currently taking methadone maintenance. Considerations: Recent urine toxicology screen not available. Recommendations: Abstain from all methamphetamine and cocaine products during and . Avoid second hand smoke exposure. Quitting Cold [place] is safe in . Ensure a Narcan [...] initiated treatment at a methadone clinic in [place]. She is currently taking 50 mg daily [...] be discouraged during (ACOG Committee Opinion, reaffirmed 2013). 2. Recommend growth scans every 4 weeks to monitor for growth restriction. 3. Crystal was encouraged to reach out to the MAT folks in [place] in order to get back on track either there or through referral by them to closer option. She is aware that the ball is in her court. [facility] encouraged as perhaps a more comfortable communication [...] as of this encounter (statuses as of 08/07/2024) Immunizations Name Administration Dates Next Due Covid-19 [...] Answer Date Recorded PHQ-2 Score 12 07/27/2019 [place] Depression Scale Answer Date Recorded [place] Depression Scale Total 7 08/30/2021 The thought [...] Sign Reading Time Taken Comments Blood Pressure 108/72 07/27/2024 3:31 PM EST Pulse 75 07/27/2024 3:31 PM EST Temperature 36.1 C (97 F) 07/27/2024 3:31 PM EST Respiratory Rate - - Oxygen Saturation 96% 07/27/2024 3:31 PM EST Inhaled Oxygen Concentration - - Weight - - Height - - Body Mass Index - - documented in this encounter Progress Notes * Sandra Nava CRNP - 07/27/2024 3:33 PM EST Images from the original note were not included. History of Present Illness Crystal Ward is a 29 year old female that presents for Return Visit (Marco for migraines ) HPI Headaches better with propranolol but more daytime somnolence which she already struggles with. Sleep study is still pending - waiting to schedule. Does not wake up feeling refreshed. She is working to decrease methadone. Current Outpatient Medications Medication Sig Dispense Refill Amitriptyline HCl 25 MG Oral Tablet (Elavil) Take a half tablet by mouth at bedtime for 1-2 weeks, then increase to a full tablet by mouth at bedtime if tolerating. 30 Tablet 5 Multi For Her Oral Tablet Take 1 Tablet by mouth in the morning. buPROPion HCl ER (XL) 150 MG Oral Tablet Extended Release 24 Hour (Wellbutrin XL) Take 1 Tablet by mouth in the morning. 30 Tablet 5 Methadone HCl 10 MG/5ML Oral Solution Take 42 mL by mouth every morning. No current facility-administered medications for this visit. Physical Exam Vitals: 07/27/24 1531 Temp: 97 F (36.1 C) Pulse: 75 SpO2: 96% BP: 108/72 Physical Exam Vitals reviewed. Constitutional: General: She is not in acute distress. HENT: Head: Normocephalic and atraumatic. Nose: Nose normal. Mouth/Throat: Mouth: Mucous membranes are moist. Eyes: Extraocular Movements: Extraocular movements intact. Conjunctiva/sclera: Conjunctivae normal. Pupils: Pupils are equal, round, and reactive to light. Cardiovascular: Rate and Rhythm: Normal rate and regular rhythm. Heart sounds: Normal heart sounds. Pulmonary: Effort: Pulmonary effort is normal. Breath sounds: Normal breath sounds. Musculoskeletal: Right lower leg: No edema. Left lower leg: No edema. Skin: General: Skin is warm and dry. Capillary Refill: Capillary refill takes less than 2 seconds. Findings: No rash. Neurological: General: No focal deficit present. Mental Status: She is alert and oriented to person, place, and time. Psychiatric: Behavior: Behavior normal. Thought Content: Thought content normal. Assessment and Plan Migraine without aura and without status migrainosus, not intractable Switch to amitriptyline as below Discussed r/b/ae BUCK diary Mag and B2 suppl discussed Sleep medicine follow up for concern for central sleep apnea - Amitriptyline HCl 25 MG Oral Tablet (Elavil); Take a half tablet by mouth at bedtime for 1-2 weeks, then increase to a full tablet by mouth at bedtime if tolerating. Excessive daytime sleepiness As above Wrap-Up Follow Up: Return in about 8 weeks (around 09/21/2024). Time: I spent a total of 20-29 minutes (exact time 20 mins) on the date of service in preparation, delivery, and documentation of the care provided to Crystal Ward excluding any time spent in the performance of separately billed services. documented in this encounter Nursing Notes * Lilia Velasquez LPN - 07/27/2024 3:30 PM EST The patient has been properly identified by confirmation of name and date of . Chief Complaint Patient presents with Return Visit Marco for migraines Pt concern for feeling fatigues with mix of medications. Feels like propranolol is helping, has not had a migraine since, but just occasional headaches. documented in this encounter Plan of Treatment Upcoming Encounters Date Type Department Care Team (Late st Contact Info) Description 09/21/2024 3:20 PM EST Office Visit [facility] [address] [place] [address] Sandra Nava CRNP [address] [place] [address] Health Maintenance Due Date Last Done Comments [...] 19+ Years) Aged Out 01/04/2022 No longer ana rosab mirela based on patient's age to complete this [...] mention of status migrainosus Excessive daytime sleepiness documented in this encounter Advance Directives * Full Code (Latest Code Status on File) Date Activated Date Inactivated Comments 06/29/2021 7:49 AM 07/05/2021 12:19 AM This order reflects the patients wishes and were consensually agreed upon.
--- OUTSIDE RECORDS SUMMARY | 2024-10-21 11:02 | External Medical Summary | Summary of Care ---
Author Name Unknown Organization [facility] Address [address] [address] Phone [phone] Care Team Providers Care Costume Design Teacher Name Role Phone Unavailable Primary Care Provider Unavailabl e Reason for Referral * Evaluate & Treat - Unlimited Visits (Within 10 days (routine)) - Authorized Specialty Diagnoses / Procedures Referred By Contact Referred To Contact GI NUTRITION/IM / Gastroenterology Diagnoses Severe obesity with body mass index (BMI) of 35.0 to 39.9 with serious comorbidity (HCC) Sandra Nava CRNP [address] [facility] [place] [address] Phone: tel:[phone] fax:[phone] Referral ID Status Reason Start Date Expiration Date Visits Requested Visits Authorized [id number] Authorized Specialty Services Required 4 [phone] Question Answer Referral Priority Within 10 days (routine) Where should this appointment be scheduled? [facility] For what condition is the patient being seen? Weight Loss Medication Is this referral for a GLP1 medication? No Comments THE PATIENT WILL NOT BE PRESCRIBED GLP-1 MEDICATIONS UNLESS: *Documentation of an unsuccessful trial of losing at least 5% of weight loss *Documentation the patient has had tried and failed two [2] non-GLP1 agonists (Phentermine and Wellbutrin/ Naltrexone) *Documentation of two [2] or more appointments discussing weight loss and lifestyle changes *Documentation of a blood pressure and weight within the EMR before initiation of the GLP-1 or non-GLP-1 medications REFERRING PROVIDER MUST ACKNOWLEDGE ALL OF THE CONDITIONS ABOVE ARE MET AND HAVE A BMI >35. IF THESE CONDITIONS ARE NOT MET THE PATIENT WILL NOT BE PRESCRIBED GLP- 1 PRESCRIPTIONS. Encounter Details Date Type Department Care Team (Late st Contact Info) Description 06/22/2024 2:20 PM EST Telemedicine Family Practice [facility] [address] [place] [address] Sandra Nava CRNP [address] [place] [address] Migraine without aura and without status migrainosus, not intractable*; Severe obesity with body mass index (BMI) of 35.0 to 39.9 with serious comorbidity (HCC) Allergies No known active allergiesdocumented as of this encounter (statuses as of 06/22/2024) Medications Methadone HCl 10 MG/5ML Oral Solution [...] in the morning. 30 Capsule 3 4 Active Topiramate 50 MG Oral Tablet (topAMAX)Indica tions:Migraine without aura and without status migrainosus, not intractable 1 tablet by mouth in the morning and 2 tablets by mouth in the evening. 180 Tablet 1 4 024 Discontinued Cephalexin 500 MG Oral CapsuleIndicati ons:Urinary tract infection in mother during first trimester of Please take one pill by mouth twice a day for 5 days. 10 Capsule 4 024 Discontinued documented as of this encounter (statuses as of 06/22/2024) Active Problems Problem Noted Date Diagnosed Date [...] as of this encounter (statuses as of 06/22/2024) Resolved Problems Problem Noted Date Diagnosed Date [...] all times; naloxone is available at all [place] pharmacies without a prescription. Methadone and buprenorphine [...] likely will seek out. DFeclines referral to [facility] today. Denies SI or HI. Assessment [...] exposure during and after delivery. Quitting Cold [place] is safe in . Consider Nicorette 2 [...] apts. 11/29/20 Initial visit at MAT in [place] and then no show for f/u 12/02/20 and not returning their calls. 12/21/20, [facility] consult- Patient reports using IV Heroin daily secondary to noncompliance with MAT f/u, and amphetamines off and on several times a week. She iindicates she does have Narcan in the event of overdose. Expresses issues with driving to [place] for MAT. [facility] friends have told her of closer providers in [place] "but there's probably a waiting list". Also she is considering Methadone as an option or De-tox but then expresses barrier of having to de-tox in order to use subutex. "I don't like that I have to get sick in order to get started." Has seen calls from [place] number but not returning as concerned it could be a creditor call. States she does have the MAT number to reach out to. States she would be interested in establishing a [employer] account and I texted her those Instructions. +cocaine and fentanyl in UDS per methadone clinic 04/13 Assessment & Plan (06/23/2021 4:55 PM EST): Overview: Has taken cocaine, fentanyl, methamphetamines; currently taking methadone maintenance. Considerations: Recent urine toxicology screen not available. Recommendations: Abstain from all methamphetamine and cocaine products during and . Avoid second hand smoke exposure. Quitting Cold [place] is safe in . Ensure a Narcan [...] initiated treatment at a methadone clinic in [place]. She is currently taking 50 mg daily [...] reach out to the MAT folks in [place] in order to get back on track either there or through referral by them to closer option. She is aware that the ball is in her court. Gabriella encouraged as perhaps a more comfortable communication [...] as of this encounter (statuses as of 06/22/2024) Immunizations Name Administration Dates Next Due Covid-19 [...] Answer Date Recorded PHQ-2 Score 12 07/27/2019 [place] Depression Scale Answer Date Recorded [place] Depression Scale Total 7 08/30/2021 The thought [...] Progress Notes * Sandra Nava CRNP - 06/22/2024 2:32 PM EST Images from the original note were not included. History of Present Illness Crystal Ward is a 29 year old female that presents for No chief complaint on file. HPI Video visit to discuss weight and migraine medications Topamax started giving her fatigue so she stopped it Now getting daily migraines She did see sleep medicine about fatigue/hypersomnolence - did not get sleep study because she never heard from the department about scheduling She does feel like the fatigue is not as bad Headaches are sometimes in morning when she wakes up but more often they develop throughout the day Will take aleve or excedrin migraine or ibuprofen for some headaches and it doesn't fully relieve the headache Also concerns about her weight One of her friends started wegovy and is having good success on it Topamax used to help with her weight Current weight is 185lb Going to gym 3 time sper week Has always struggled with weight and had gestational diabetes with daughter Current Outpatient Medications Medication Sig Dispense Refill Propranolol HCl ER 60 MG Oral Capsule Extended Release 24 Hour (Inderal LA) Take 1 Capsule by mouthin the morning. 30 Capsule 3 Multi For Her Oral Tablet Take 1 Tablet by mouth in the morning. buPROPion HCl ER (XL) 150 MG Oral Tablet Extended Release 24 Hour (Wellbutrin XL) Take 1 Tablet by mouth in the morning. 30 Tablet 5 Methadone HCl 10 MG/5ML Oral Solution Take 42 mL by mouth every morning. No current facility-administered medications for this visit. Physical Exam There were no vitals filed for this visit. Physical Exam Constitutional: General: She is not in acute distress. Neurological: Mental Status: She is alert and oriented to person, place, and time. Psychiatric: Behavior: Behavior normal. Thought Content: Thought content normal. Assessment and Plan Migraine without aura and without status migrainosus, not intractable BUCK diary Add riboflavin/mag and increase water intake Follow up with sleep medicine about FERNANDA - Propranolol HCl ER 60 MG Oral Capsule Extended Release 24 Hour (Inderal LA); Take 1 Capsule by mouth in the morning. Severe obesity with body mass index (BMI) of 35.0 to 39.9 with serious comorbidity (HCC) - GI NUTRITION REFERRAL OP Wrap-Up Follow-up: Return in about 4 weeks (around 07/20/2024), or if symptoms worsen or fail to improve. |Check-out note: Please schedule migraine follow up Time: I spent a total of 20-29 minutes (exact time 20 mins) on the date of service in preparation, delivery, and documentation of the care provided to Crystal Ward excluding any time spent in the performance of separately billed services. Telemedicine: Patient location: HOME. I was in a hospital or clinic location. After connecting through televideo,patient was verified with two unique identifiers. Patient (or authorized legal client service representative) was then informed that this was [...] 5 Years) and At-Risk Patients (6 to 64 Years) Aged Out 01/04/2022 No longer eligible based on patient's age [...] intractable migraine without mention of status migrainosus Severe obesity with body mass index (BMI) of 35.0 to 39.9 with serious comorbidity (HCC) documented in this encounter Advance Directives * Full Code (Latest Code Status on File) Date Activated Date Inactivated Comments 06/29/2021 7:49 AM 07/05/2021 12:19 AM This order reflects the patients wishes and were consensually agreed upon.
--- OUTSIDE RECORDS SUMMARY | 2024-10-21 11:02 | External Medical Summary | Summary of Care ---
Author Name Unknown Organization [facility] Address [address] [facility] [place] [address] Phone [phone] Care Team Providers Care Traffic Engineering Director Name Role Phone Unavailable Primary Care Provider Unavailabl e Reason for Visit * Reason Onset Date Comments Referral 07/27/2024 Encounter Details Date Type Department Care Team (Late st Contact Info) Description 07/27/2024 Telephone Family Practice [facility] [address] [place] [address] Sandra Nava CRNP [address] [place] [address] Referral Allergies No known active allergiesdocumented as of this encounter (statuses as of 08/17/2024) Medications Methadone HCl 10 MG/5ML Oral Solution [...] as of this encounter (statuses as of 08/17/2024) Active Problems Problem Noted Date Diagnosed Date SAB (spontaneous ) 12/17/2023 Overview (12/17/2023): Beta hcg 361 on 11/26/23 and 300 on 12/17/23. No heart tones visualized on ultrasound on 12/16/23. Urinary tract infection in m other during first trimester of 11/28/2023 Overview (11/28/2023): Treated /. Will need GRETA in 4 weeks. History [...] as of this encounter (statuses as of 08/17/2024) Resolved Problems Problem Noted Date Diagnosed Date [...] likely will seek out. DFeclines referral to [facility] today. Denies SI or HI. Assessment [...] exposure during and after delivery. Quitting Cold [place] is safe in . Consider Nicorette 2 [...] apts. 11/29/20 Initial visit at MAT in [place] and then no show for f/u 12/02/20 and not returning their calls. 12/21/20, [facility] consult- Patient reports using IV Heroin daily secondary to noncompliance with MAT f/u, and amphetamines off and on several times a week. She iindicates she does have Narcan in the event of overdose. Expresses issues with driving to [place] for MAT. [facility] friends have told her of closer providers in [place] "but there's probably a waiting list". Also she is considering Methadone as an option or De-tox but then expresses barrier of having to de-tox in order to use subutex. "I don't like that I have to get sick in order to get started." Has seen calls from [place] number but not returning as concerned it could be a creditor call. States she does have the MAT number to reach out to. [facility] she would be interested in establishing a [employer] account and I texted her those Instructions. +cocaine and fentanyl in UDS per methadone clinic 04/13 Assessment & Plan (06/23/2021 4:55 PM EST): Overview: Has taken cocaine, fentanyl, methamphetamines; currently taking methadone maintenance. Considerations: Recent urine toxicology screen not available. Recommendations: Abstain from all methamphetamine and cocaine products during and . Avoid second hand smoke exposure. Quitting Cold [place] is safe in . Ensure a Narcan [...] initiated treatment at a methadone clinic in [place]. She is currently taking 50 mg daily [...] reach out to the MAT folks in [place] in order to get back on track [...] as of this encounter (statuses as of 08/17/2024) Immunizations Name Administration Dates Next Due Covid-19 [...] Answer Date Recorded PHQ-2 Score 12 07/27/2019 [place] Depression Scale Answer Date Recorded [place] Depression Scale Total 7 08/30/2021 The thought [...] encounter Miscellaneous Notes * Telephone Encounter - Katiuska Sethi OSA - 07/27/2024 3:47 PM EST Please see message below for sleep med thank you * Telephone Encounter - Sandra Nava CRNP - 07/27/2024 3:39 PM EST Patient has not been contacted to do sleep study yet - please send to sleep med for follow up documented in this encounter Plan of Treatment Upcoming Encounters Date Type Department Care Team (Late st Contact Info) Description 09/21/2024 3:20 PM EST Office Visit Family Practice [facility] [address] [facility] [place] [address] Sandra Nava CRNP [address] [place] [address] Health Maintenance Due Date Last Done Comments [...]
--- OUTSIDE RECORDS SUMMARY | 2024-10-21 11:02 | External Medical Summary | Summary of Care ---
Author Name Unknown Organization [facility] Address [address] [facility] [place] [address] Phone [phone] Care Team Providers Care Wood Cutter Name Role Phone Unavailable Primary Care Provider Unavailabl e Reason for Visit * Reason Onset Date Comments Referral 06/22/2024 Encounter Details Date Type Department Care Team (Late st Contact Info) Description 06/22/2024 Telephone Family Practice [facility] [address] [place] [address] Sandra Nava CRNP [address] [place] [address] Referral Allergies No known active allergiesdocumented as of this encounter (statuses as of 06/22/2024) Medications Methadone HCl 10 MG/5ML Oral Solution Take 42 mL by mouth every morning. Active buPROPion HCl ER (XL) 150 MG Oral Tablet Extended Release 24 Hour (Wellbutrin XL)Indications:D epression with anxiety Take 1 Tablet by mouth in the morning. 30 Tablet 5 02/28/2024 8:22 AM EDT 12/05/2023 Active Multi For Her Oral Tablet Take 1 Tablet by mouth in the morning. Active Propranolol HCl ER 60 MG Oral Capsule Extended Release 24 Hour (Inderal LA)Indications:M igraine without aura and without status migrainosus, not intractable Take 1 Capsule by mouth in the morning. 30 Capsule 3 06/22/2024 Active documented as of this encounter (statuses [...] all times; naloxone is available at all [place] pharmacies without a prescription. Methadone and buprenorphine [...] likely will seek out. DFeclines referral to [facility] today. Denies SI or HI. Assessment [...] exposure during and after delivery. Quitting Cold [place] is safe in . Consider Nicorette 2 [...] apts. 11/29/20 Initial visit at MAT in [place] and then no show for f/u 12/02/20 and not returning their calls. 12/21/20, [facility] consult- Patient reports using IV Heroin daily secondary to noncompliance with MAT f/u, and amphetamines off and on several times a week. She iindicates she does have Narcan in the event of overdose. Expresses issues with driving to [place] for MAT. [facility] friends have told her of closer providers in [place] "but there's probably a waiting list". Also she is considering Methadone as an option or De-tox but then expresses barrier of having to de-tox in order to use subutex. "I don't like that I have to get sick in order to get started." Has seen calls from [place] number but not returning as concerned it could be a creditor call. States she does have the MAT number to reach out to. [facility] she would be interested in establishing a [employer] account and I texted her those Instructions. +cocaine and fentanyl in UDS per methadone clinic 04/13 Assessment & Plan (06/23/2021 4:55 PM EST): Overview: Has taken cocaine, fentanyl, methamphetamines; currently taking methadone maintenance. Considerations: Recent urine toxicology screen not available. Recommendations: Abstain from all methamphetamine and cocaine products during and . Avoid second hand smoke exposure. Quitting Cold [place] is safe in . Ensure a Narcan [...] initiated treatment at a methadone clinic in [place]. She is currently taking 50 mg daily [...] reach out to the MAT folks in [place] in order to get back on track [...] having any current needs or questions 05/05/2021 aKyla Mccrary RN 05/05/2021 Problem Action Taken Date [...] Answer Date Recorded PHQ-2 Score 12 07/27/2019 [place] Depression Scale Answer Date Recorded [place] Depression Scale Total 7 08/30/2021 The thought [...]
--- OUTSIDE RECORDS SUMMARY | 2024-10-21 11:02 | External Medical Summary | Summary of Care ---
Author Name Unknown Organization [facility] Address [address] [facility] [place] [address] Phone [phone] Care Team Providers Care Outside Sales Executive Name Role Phone Unavailable Primary Care Provider Unavailabl e Reason for Visit * Reason Onset Date Comments Referral 06/22/2024 Encounter Details Date Type Department Care Team (Late st Contact Info) Description 06/22/2024 Telephone Family Practice [facility] [address] [place] [address] Sandra Nava CRNP [address] [place] [address] Referral Allergies No known active allergiesdocumented as [...] all times; naloxone is available at all [place] pharmacies without a prescription. Methadone and buprenorphine [...] likely will seek out. DFeclines referral to [facility] today. Denies SI or HI. Assessment & [...] exposure during and after delivery. Quitting Cold [place] is safe in . Consider Nicorette 2 [...] apts. 11/29/20 Initial visit at MAT in [place] and then no show for f/u 12/02/20 and not returning their calls. 12/21/20, [facility] consult- Patient reports using IV Heroin daily secondary to noncompliance with MAT f/u, and amphetamines off and on several times a week. She iindicates she does have Narcan in the event of overdose. Expresses issues with driving to [place] for MAT. [facility] friends have told her of closer providers in [place] "but there's probably a waiting list". Also she is considering Methadone as an option or De-tox but then expresses barrier of having to de-tox in order to use subutex. "I don't like that I have to get sick in order to get started." Has seen calls from [place] number but not returning as concerned it could be a creditor call. States she does have the MAT number to reach out to. States she would be interested in establishing a [employer] account and I texted her those Instructions. +cocaine and fentanyl in UDS per methadone clinic 04/13 Assessment & Plan (06/23/2021 4:55 PM EST): Overview: Has taken cocaine, fentanyl, methamphetamines; currently taking methadone maintenance. Considerations: Recent urine toxicology screen not available. Recommendations: Abstain from all methamphetamine and cocaine products during and . Avoid second hand smoke exposure. Quitting Cold [place] is safe in . Ensure a Narcan [...] initiated treatment at a methadone clinic in [place]. She is currently taking 50 mg daily [...] reach out to the MAT folks in [place] in order to get back on track [...] PPD 07/27/2019 Pneumococcal Conjugate Vacci ne, 20-valent ([id number]) 01/04/2022 Seasonal Influenza Vac., MDV , IM, [...] Answer Date Recorded PHQ-2 Score 12 07/27/2019 [place] Depression Scale Answer Date Recorded [place] Depression Scale Total 7 08/30/2021 The thought [...] Encounter - Katiuska Sethi OSA - 07/27/2024 3:48 PM EST Nothing open currently but pt has been added to recall/ wait list * Telephone Encounter - Sandra Nava CRNP [...]
--- OUTSIDE RECORDS SUMMARY | 2024-10-21 11:03 | External Medical Summary | Summary of Care ---
Author Name Unknown Organization [facility] Address [address] [facility] [place] [address] Phone [phone] Care Team Providers Care Inspector [employer] Name Role Phone Unavailable Primary Care Provider Unavailabl e Reason for Visit * Reason Onset Date Comments Appointment 01/24/2024 Encounter Details Date Type Department Care Team (Late st Contact Info) Description 01/24/2024 Telephone Pulmonary Medicine, [facility] [address] [place] [id number] Sheila Son, [address] [place] [id number] Appointment Allergies No known active allergiesdocumented as of this encounter (statuses as of 04/24/2024) Medications Medication Sig Dispensed Refills Start Date End Date Status Methadone HCl 10 MG/5ML Oral Solution Take 42 mL by mouth every morning. Active Topiramate 50 MG Oral Tablet (topAMAX)Indication s:Migraine without aura and without status migrainosus, not intractable 1 tablet by mouth in the morning and 2 tablets by mouth in the evening. 180 Tablet 1 10/24/2023 Active Additional Information Patient not taking.Reported on 01/24/2024 Cephalexin 500 MG Oral CapsuleIndications: Urinary tract infection in mother during first trimester of Please take one pill by mouth twice a day for 5 days. 10 Capsule 11/28/2023 Active Additional Information Patient not taking.Reported on 01/24/2024 buPROPion HCl ER (XL) 150 MG Oral Tablet Extended Release 24 Hour (Wellbutrin XL)Indications:Depr ession with anxiety Take 1 Tablet by mouth in the morning. 30 Tablet 5 12/05/2023 Active Multi For Her Oral Tablet Take 1 Tablet by mouth in the morning. Active documented as of this encounter (statuses as of 04/24/2024) Active Problems Problem Noted Date Diagnosed Date SAB (spontaneous ) 12/17/2023 Overview: Beta hcg 361 on 11/26/23 and 300 on 12/17/23. No heart tones visualized on ultrasound on 12/16/23. Urinary tract infection in m other during first trimester of 11/28/2023 Overview: Treated 11/27. Will need GRETA in 4 weeks. History of hepatitis C 08/29/2023 Bilateral hand swelling 11/08/2021 Bilateral swelling of feet 11/08/2021 Chronic viral hepatitis 11/08/2021 Tobacco use disorder documented as of this encounter (statuses as of 04/24/2024) Resolved Problems Problem Noted Date Diagnosed Date Resolved Date History of pre-eclampsia 11/08/202107/2023 Preeclampsia, severe, third trimester 06/29/2021 07/31/2021 Heroin use affecting pregnan cy in third trimester 06/29/2021 07/31/2021 Methamphetamine use disorder, severe 06/22/2021 07/31/2021 Last Assessment & Plan: Methadone maintenance treatm ent affecting 03/28/2021 07/31/2021 Last Assessment & Plan: CONSIDERATIONS: Methadone or buprenorphine maintenance therapy during [...] times; naloxone is available at all [place] pharmacies without a prescription. Methadone and buprenorphine are compatible with . RECOMMENDATIONS: Do not reduce or otherwise try to minimize the dose of maintenance therapy during . Medically supervised withdrawal is discouraged in . Professional counseling services are available for patients who wish to abstain from illicit opioids. Consider referral if patient desires. Obesity in , antepartum 01/27/2021 07/31/2021 Overview: Class 1 Last Assessment & Plan: Pt did not pass glucola screen; has not yet performed 3 hour OGTT. Recommendations: Discussed target weight gain in . Perform gestational diabetes mellitus 3 hour OGTT promptly. Hepatitis C infection 12/28/20202021 Overview: Hep C viral load >1,000,000 at 12w. Attempting to make pt aware. Dysplasia of cervix, low grade ([place] 1) 12/27/2020 07/01/2021 Overview: repeat pap 10/2021 Depression complicating , antepartum 12/22/19 21 07/31/2021 Overview: Stopped Wellbutrin with [facility] but planning to restart given safety information on use with . Not currently in counsleing but aware of resources and likely will seek out. DFeclines referral to [facility] today. Denies SI or HI. Last Assessment & Plan: Reports that her mood symptoms have been stable. She denies SI/HI. Compliant with Wellbutrin 150 XL. Tobacco smoking affecting pr egnancy, antepartum 12/21/2020 07/31/2021 Last Assessment & Plan: Patient is currently taking up to 5 cigarettes daily. Recommendations: Abstain from all tobacco, vaping, and other nicotine products during and . Avoid all second hand smoke exposure during and after delivery. Quitting Cold [place] is safe in . Consider Nicorette 2 mg lozenges or gum in lieu of cigarettes or vaping devices. 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 Patient reports this finding was noted "years ago" with f/u suggesting past exposure and no active disease. Last Assessment & Plan: Most recent HCV quant level was 1,010,000on 12/22/20. Denies recent treatment for HCV. Recommendations The patient has the contact information for the gastroenterology clinic and will set up treatment. Hepatitis C infection is not a contraindication for . Abstain from alcohol and limit exposure to Tylenol to reduce the risk of further liver damage. Drug use affecting 12/02/2020 07/31/2021 Overview: PER MFM: Obtaining urine drug screen as well as a separate fentanyl screen at next visit or on admission to L&D, with positive result reflex to gas chromatography/mass spectroscopy (GCMS) for confirmation. MAT clinic referral placed. Pt has been noncompliant in returning calls and going to follow up apts. 11/29/20 Initial visit at MAT in [place] and then no show for f/u 12/02/20 and not returning their calls. 12/21/20, MFM consult- Patient reports using IV Heroin daily secondary to noncompliance with MAT f/u, and amphetamines off and on several times a week. She iindicates she does have Narcan in the event of overdose. Expresses issues with driving to [place] for MAT. States friends have told her of closer providers in [place] "but there's probably a waiting list". Also she is considering Methadone as an option or De-tox but then expresses barrier of having to de-tox in order to use subutex. "I don't like that I have to get sick in order to get started." Has seen calls from [place] number but not returning as concerned it could be a creditor call. States she does have the MAT number to reach out to. States she would be interested in establishing a [employer] account and I texted her those Instructions. +cocaine and fentanyl in UDS per methadone clinic 04/13 Last Assessment & Plan: Overview: Has taken cocaine, fentanyl, methamphetamines; currently taking methadone maintenance. Considerations: Recent urine toxicology screen not available. Recommendations: Abstain from all methamphetamine and cocaine products during and . Avoid second hand smoke exposure. Quitting Cold [place] is safe in . Ensure a Narcan [...] to gas chromatography/mass spectroscopy (GCMS) for confirmation. High-risk 11/23/2020 07/31/19 Overview: Problem Action Taken Date entered Entered by [...] as of this encounter (statuses as of 04/24/2024) Immunizations Name Administration Dates Next Due Covid-19 Ad26, Single Dose (Nancy/J&J) 021 HPV Vaccine, 4-Valent 05/12/2010 Hepatitis A, Ped/Adol., 18 year and below, 2-Dos e 01/08/2007 Influenza Vaccine, Live, Int ranasal, Trivalent (Flumist) 08/03/2011 MMR - Measles/Mumps/Rubella Vaccine 01/08/2007 Meningococcal Conjugate Vaccine (Menactra/Menveo ) 03/03/2009 PPD 07/27/2019 Pneumococcal Conjugate Vaccine, 20-valent (Prevn ar20) 01/04/2022 Seasonal Influenza, PF, 6 M & above, IM , (FluLaval or Fluzone) 07/27/2019,09/24/2017 Seasonal Influenza, Trivalen t, (IIV3), with Preserv, (Fluzone) 05/12/2010,04/13/2009 TDAP (age 10 and older)(Boostrix) 07/27/2019 TDAP, [...] Answer Date Recorded PHQ-2 Score 12 07/27/2019 [place] Depression Scale Answer Date Recorded [place] Depression Scale Total 7 08/30/2021 The thought [...] years and over) Not on file 01/14/2024 Sex and Gender Information Value Date Recorded Sex Assigned at Female 10/15/2023 7:18 AM EDT Gender Identity Female 10/15/2023 7:18 AM EDT Sexual Orientation Bisexual 10/15/2023 7: 18 AM EDT Job Start Date Occupation Industry Not on file Not on file Not on file documented as of this encounter Miscellaneous Notes * Telephone Encounter - Polo De La Rosa OSA - 02/06/2024 12:42 PM EDT [facility]cell asking pt to return call. Will need to find out where pt prefers to have sleep study - [facility] or [facility]. If GL, please schedule and then also schedule f/u appt w/ Dr Son following (can schedule next available and add to waitlist). * Telephone Encounter - Silvia White OSA - 01/24/2024 3:09 PM EDT Pt needs sleep study and follow up scheduled. documented in this encounter Plan of Treatment [...]
[2024-10-21] MEDS: CEFEPIME 2000MG 2,000 MG/20 ML SYR IV SCH (14:16)
[2024-10-21] MEDS: ACETAMINOPHEN 500 MG TAB PO PRN (15:16)
--- NOTE | 2024-10-21 16:29 | Communication Note ---
Patient seen and examined at bedside. Discussed imaging findings, urinary tract findings, consistent with pyelonephritis in the setting of sepsis. Treatment is IV antibiotics and fluids while awaiting speciation. Discussed if speciation comes back tomorrow we may be able to discharge her home to finish an oral course. Plan is to continue cefepime, give additional fluid resuscitation given tachycardia, and wait for speciation of urine culture. Date of Service: October 21, 2024
[2024-10-21] MEDS: KETOROLAC TROMETHAMINE 15 MG/ML VIAL IV PRN (16:38)
[2024-10-21] MEDS: LACTATED RINGER'S 1,000 ML IV SCH (16:44)
--- OUTSIDE RECORDS SUMMARY | 2024-10-21 17:30 | External Medical Summary ---
Author Name Unknown Address Unknown Organization [id number]:[facility] - [address] [place] [address] Laboratory Report Ordering Provider Test Date Status STALIN KUMAR 10/20/2024 16:16:34 Final Observation Date Value Abnormality Reference (Units ) Status BUN 10/20/2024 16:16:34 19 6-20 (mg/dL) Final Creatinine 10/20/2024 16:16:34 1.0 0.5-1.0 (mg/dL) Final Glomerular filtration rate/1.73 sq M.predicted [Volume Rate/Area] in Serum, Plasma or Blood by Creatinine-based formula (CKD-EPI) 10/20/2024 16:16:34 77 >=60 (mL/min) Final eGFR is calculated based on the CKD-EPI 2020 equation. Sodium 10/20/2024 16:16:34 136 135-146 (m mol/L) Final Potassium 10/20/2024 16:16:34 4.9 3.5-5.1 (m mol/L) Final Results may be falsely eleva zakia due to hemolysis. Cl 10/20/2024 16:16:34 100 98-107 (mm ol/L) Final CO2 10/20/2024 16:16:34 20 Below low normal 22- 32 (mmol/L) Final Anion gap 10/20/2024 16:16:34 16 Above high normal 7- 15 (mmol/L) Final Glucose 10/20/2024 16:16:34 89 70-120 (mg /dL) Final Calcium 10/20/2024 16:16:34 9.6 8.4-10.2 ( mg/dL) Final Performing Location [facility] - [address] [place] [id number]
--- OUTSIDE RECORDS SUMMARY | 2024-10-21 17:30 | External Medical Summary ---
Author Name Unknown Address Unknown Organization [id number]:[facility] - [address] [place] [address] Laboratory Report Ordering Provider Test Date Status STALIN KUMAR 10/20/2024 16:16:34 Final Observation Date Value Abnormality Reference (Units ) Status Triglyceride 10/20/2024 16:16:34 99 <=174 ( mg/dL) Final Triglyceride Reference Range s (mg/dL):
<150 Acceptable
150-174 Borderline high
175-499 High
>=500 Very high Cholesterol 10/20/2024 16:16:34 143 <200 (mg /dL) Final Total Cholesterol Reference Ranges (mg/dL):
<200 Desirable
200-239 Borderline high
>=240 High HDL 10/20/2024 16:16:34 64 >49 (mg/dL ) Final HDL Cholesterol Reference Ra nges (mg/dL):
>=60 High (Desirable)
<50 Low (Undesirable) For Females
<40 Low (Undesirable) For Males NON-HDL CHOLESTEROL 10/20/2024 16:16:34 79 <=159 (mg/dL) Final Non-HDL Cholesterol Referenc e Range (mg/dL):
<100 Target level for high risk ASCVD patient
<130 Optimal for general population
130-159 Near optimal for general population
160-189 Borderline High
190-219 High
>=220 Very High LDL, (calculated) 10/20/2024 16:16:34 59 <= 129 (mg/dL) Final LDL Cholesterol Reference Ra nges (mg/dL):
<70 Target level for high risk ASCVD patient
<100 Optimal for general population
100-129 Near optimal for general population
130-159 Borderline high
160-189 High
>=190 Very high
Patient has high LDL cholesterol. Consider screening for Familial Hypercholesterolemia. Performing Location [facility] - [address] [facility] [id number]
[2024-10-21] MEDS: AMITRIPTYLINE HCL 25 MG TAB PO SCH (20:18)
[2024-10-21] MEDS: KETOROLAC TROMETHAMINE 15 MG/ML VIAL IV SCH (22:01)
[2024-10-22] MEDS: ACETAMINOPHEN 500 MG TAB PO PRN (03:20)
[2024-10-22] MEDS: METHADONE ORAL SOLN 2 MG/ML PO SCH (05:43)
[2024-10-22] MEDS: PATIENT'S OWN CONTROLLED MED 1 PO SCH (06:37)
[2024-10-22 07:03] LABS: Basophils # (auto) 0.02 K/uL (0.00-0.20); Basophils % (auto) 0.3 %; Eosinophils # (auto) 0.09 K/uL (0.00-0.50); Eosinophils % (auto) 1.1 %; Hematocrit (blood only) 29.9 % (37.0-47.0); Hemoglobin 10.1 g/dl (12.0-16.0); Immature Granulocytes # (auto) 0.03 K/uL (0.01-0.20); Immature Granulocytes % (auto) 0.4 %; Lymphocytes % (auto) 12.5 %; Mean Corpuscular Hemoglobin 28.1 pg (25.0-34.0); Mean Corpuscular Hgb Conc 33.8 g/dL (32.0-36.0); Mean Corpuscular Volume 83.1 fL (80.0-100.0); Neutrophils # (auto) 6.03 K/uL (1.40-6.50); Neutrophils % (auto) 75.7 %; Platelet Count 161 K/uL (130-400); RDW Standard Deviation 39.4 fL (36.4-46.3); White Blood Count 7.97 K/ul (4.8-10.8)
[2024-10-22 07:12] LABS: BUN Creatinine Ratio 16.3 (10-20); Calcium 7.8 mg/dl (8.6-10.3); Creatinine Clr Calc Pharmacy 108.4 ml/min; Magnesium 2.2 mg/dl (1.7-2.4); Potassium 4.6 mmol/L (3.5-5.1)
[2024-10-22 07:57] VITALS: PULSE 69; RESP 16; TEMP 97.5; O2SAT 95
[2024-10-22] MEDS: MULTIVITAMIN TAB PO SCH (08:43)
[2024-10-22 11:07] VITALS: BP 97/64
--- NOTE | 2024-10-22 15:19 | Discharge Summary ---
Discharge Summary Date of Service October 22, 2024 Principal Dx & Hospital Course #1 = Principal Diagnosis (1) Sepsis: Sepsis Secondary to complicated UTI/pyelonephritis Signs of chronic liver disease on imaging, history HCV status post Rx mood disorder, stable chronic pain on methadone migraine on amitriptyline past history of substance abuse Hypokalemia secondary to emesis Hyperglycemia rule out DM ongoing vape use Admit to med/tele CS, Cefepime Outpatient GI consult for chronic liver disease workup Replace electrolytes Check hemoglobin A1c DVT prophylaxis. SCDs Re: Hematuria Full code Text document was generated using [employer] voice recognition software. It may contain grammatical or spelling errors. Kindly contact undersigned for clarification of any documentation item in question. Plan Medical history significant for HCV status post Rx, mood disorder, chronic pain on methadone, migraine, past history of substance abuse, ongoing vape use. Presented for urinary frequency. On medicine, treated for pyelonephritis, grew E. coli in urine. Given fluids for sepsis. On 10/22/2024 patient medically stable for discharge. Notes For Next Care Provider Medical history significant for HCV status post Rx, mood disorder, chronic pain on methadone, migraine, past history of substance abuse, ongoing vape use. Presented for urinary frequency. On medicine, treated for pyelonephritis, grew E. coli in urine. Given fluids for sepsis. On 10/22/2024 patient medically stable for discharge. Medication Changes From Visit -zofran, augmentin Admission HPI Per Admitting Provider History obtained from patient and records. Medical history significant for HCV status post Rx, mood disorder, chronic pain on methadone, migraine, past history of substance abuse, ongoing vape use. Last confinement 2012 for ileus. 1 week history of urinary frequency with hematuria symptoms. Achy low back and lower abdominal pain followed by nausea emesis. Fever chills, mild headache symptoms different from usual migraine attack. Patient consulted ER for worsening symptoms. IV ceftriaxone administered at the ER. 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 External ears normal. No rhinorrhea. Moist mucous membranes. Neck: Supple, full range of motion, no observable masses, No meningeal sign. Lungs: No Respiratory distress. CV: RRR, no edema. Abdomen: Soft, nondistended, No rebound tenderness. MSK: No joint swelling, no redness. Skin: No rashes, petechiae, lesions. Normal color per patient. Neuro: Normal Gait, Grossly intact. Psych: Appropriate for situation. Updated Medication List Medication Instructions Recorded Confirmed Type bupropion HCl 150 mg 24 hr tablet, 150 mg PO QAM 12/14/23 10/21/24 History extended release amitriptyline 25 mg tablet 25 mg PO HS 10/21/24 10/21/24 History methadone 10 mg/5 mL oral solution 91 mg PO DAILY 10/21/24 10/21/24 History multivitamin 1 tab PO DAILY 10/21/24 10/21/24 History amoxicillin 500 mg-potassium 1 tab PO BID 7 days #14 tabs 10/22/24 Rx clavulanate 125 mg tablet (Augmentin) meloxicam 7.5 mg tablet 7.5 mg PO DAILY PRN headache #14 10/22/24 Rx tabs ondansetron 4 mg disintegrating 4 mg PO DAILY PRN nausea and 10/22/24 Rx tablet vomiting #14 tabs Hospital Stay Data Consultations 10/21/24 05:43 ED Decision to Admit Stat Diagnostic Imagining Performed 10/21/24 02:33 CT abd pelvis IV con only Stat Pending Results Patient Have Any Pending Studies at Discharge: No Discharge Instructions Given to Patient (Per Discharging Provider) 1. Please stay very hydrated. 2. Take antibiotics as prescribed. 3. Please follow up with PCP. Total Time Total Time Spent Total Time Spent (In Minutes): I spent a total of 35 minutes in direct patient care, including [id number] time with the patient and/or family, reviewing medical records, ordering and reviewing diagnostic tests, and coordinating care with other healthcare providers. This time includes: history taking, physical examination, medical decision making, counseling, ECG interpretation, imaging interpretation, lab interpretation, orders, and education, excluding time spent in the performance of separately billed services.
== END 2024-10-22 12:03 | disposition home or self-care (01) | DRG 872 ==
LOC: ED 02:21 → EDINP 06:09 → 2N 09:55